=== PATIENT | male | born 1945 | race Caucasian/White ===

== ENCOUNTER 2020-06-21 08:21 | Inpatient (IN) | payer MEDICARE, OTHER ==
[~2020-06-21] VITALS: Ht 182.9 cm; Wt 54.9 kg
[2020-06-21] VITALS (9 sets, daily range): BP systolic 142–187; BP diastolic 51–91
[~2020-06-21 08:21] MED LIST: ACETAMINOPHEN650 M2 ORAL; ADALAT10 MG ORAL; CARAFATE1 G1 ORAL; CATAPRES0.1 MG ORAL; COLACE100 MG ORAL; COZAAR50 MG ORAL; HYDRALAZINE HCL50 MG ORAL; MULTIVITAMINS1 EAC8 ORAL; NITROSTAT0.4 M1 SL; RISPERDAL0.5 MG ORAL; VITAMIN C500 M1 ORAL
--- NOTE | 2020-06-21 08:33 | Emergency Room Report ---
History of Present Illness General Chief Complaint: Gastrointestinal Bleed Source: Medical Record, EMS Present Illness HPI Disclaimer: Please note that this report is being documented using DRAGON technology. This can lead to erroneous entry secondary to incorrect interpretation by the dictating instrument. HPI: 75-year-old male history of hypertension, hyperlipidemia, G-tube dependent feeds, on apixaban for DVT prophylaxis presenting with rectal bleeding. Blood noted in stool by nursing staff yesterday. Tested occult blood positive today. No syncope reported. Patient denies discomfort, diarrhea, vomiting. He denies pain of any kind at this time and denies lightheadedness, chest pain, palpitations, shortness of breath. Recently tested negative for COVID-19. States he has had a GI bleed in the past but cannot remember what the source was. 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 COVID-19 Screening: Negative COVID-19 COVID-19 Testing Source: [facility] acute-rehab Nursing Documentation-PMH Past Medical History: No History, Except For Hx Hypertension: Yes Hx Gastrointestinal Problems: Yes - left hip replacement, GERD Hx Neurological Problems: Yes - Dementia, Schizophrenia, FTT, depression Review of Systems All Other Systems: negative except mentioned in HPI Physical Exam Vital Signs Date Time Temp Pulse Resp B/P (MAP) Pulse Ox O2 Delivery O2 Flow Rate FiO2 06/21/20 08:22 97.9 63 16 161/91 (114) 97 Room Air General: Awake and alert, no acute distress HEENT: NC/AT. EOMI. Cardiovascular: RRR. S1 and S2 normal. No murmur appreciated Resp: Normal work of breathing. No cough, wheezing or crackles appreciated Abdomen: Abdomen is soft, nondistended. Nontender. G-tube in place. No surrounding leaking or signs of infection. Rectal: Gross blood mixed with stool Skin: Intact. No abrasions, laceration or rash over the exposed skin MSK: Frail, decreased muscle bulk. Neuro: Awake and alert. Mentating appropriately. Medical Decision Making Diagnostic Impression: Primary Impression: Gastrointestinal hemorrhage ER Course 75-year-old male presents for rectal bleeding. He is on apixaban for DVT prophylaxis. Arrives with stable vital signs in no acute distress and denies abdominal pain. Patient started IV fluids, Protonix, send type and screen, broad labs and will require admission for GI bleed work-up. Labs unremarkable. No indication for emergent transfusion. Admitted to his PMD, Dr. Pena. Laboratory Tests Test 06/21/20 08:35 White Blood Count 5.4 K/UL (4.8-10.8) Red Blood Count 4.03 M/UL (4.70-6.10) L Hemoglobin 12.5 G/DL (14.2-18.0) L Hematocrit 36.0 % (42.0-52.0) L Mean Corpuscular Volume 89 FL (80-99) Mean Corpuscular Hemoglobin 30.9 PG (27.0-31.0) Mean Corpuscular Hemoglobin Concent 34.6 G/DL (32.0-36.0) Red Cell Distribution Width 14.3 % (11.6-14.8) Platelet Count 172 K/UL (150-450) Mean Platelet Volume 8.3 FL (6.5-10.1) Neutrophils (%) (Auto) 64.0 % (45.0-75.0) Lymphocytes (%) (Auto) 26.9 % (20.0-45.0) Monocytes (%) (Auto) 8.2 % (1.0-10.0) Eosinophils (%) (Auto) 0.3 % (0.0-3.0) Basophils (%) (Auto) 0.6 % (0.0-2.0) Prothrombin Time 11.5 SEC (9.30-11.50) Prothrombin Time INR 1.0 (0.9-1.1) Activated Partial Thromboplast Time 48 SEC (23-33) H Sodium Level 141 MMOL/L (136-145) Potassium Level 3.9 MMOL/L (3.5-5.1) Chloride Level 105 MMOL/L (98-107) Carbon Dioxide Level 34 MMOL/L (21-32) H Anion Gap 2 mmol/L (5-15) L Blood Urea Nitrogen 21 mg/dL (7-18) H Creatinine 0.7 MG/DL (0.55-1.30) Estimated Glomerular Filtration Rate > 60 mL/min (>60) Glucose Level 85 MG/DL (74-106) Calcium Level 8.8 MG/DL (8.5-10.1) Total Bilirubin 0.4 MG/DL (0.2-1.0) Aspartate Amino Transferase (AST) 27 U/L (15-37) Alanine Aminotransferase (ALT) 37 U/L (12-78) Alkaline Phosphatase 82 U/L (46-116) Troponin I 0.026 ng/mL (0.000-0.056) Total Protein 5.9 G/DL (6.4-8.2) L Albumin 2.9 G/DL (3.4-5.0) L Globulin 3.0 g/dL Albumin/Globulin Ratio 1.0 (1.0-2.7) Lipase 152 U/L (73-393) EKG Diagnostic Results Troponin ordered: Yes When was troponin ordered?: Jun 21, 2020 EKG Time: 08:31 Rate: bradycardiac Rhythm: NSR ST Segments: no acute changes Other Impression Sinus bradycardia, left axis, wide QRS 130 ms. QTc 457 ms. First-degree AV block. No ST segment elevation identified Rhythm Strip Diag. Results Rhythm Strip Time: 08:31 EP Interpretation: yes Rate: 50s Rhythm: NSR, no PVC's, no ectopy Chest X-Ray Diagnostic Results Chest X-Ray Diagnostic Results : Chest X-Ray Ordered: Yes # of Views/Limited/Complete: 1 View Indication: Other - Cough EP Interpretation: Yes Interpretation: no consolidation, no effusion, no pneumothorax, no acute cardiopulmonary disease Impression: No acute disease Electronically Signed by: Electronically signed by Dr. Leroy Acosta MD Last Vital Signs Date Time Temp Pulse Resp B/P (MAP) Pulse Ox O2 Delivery O2 Flow Rate FiO2 06/21/20 08:22 97.9 63 16 161/91 (114) 97 Room Air Disposition: ADMITTED INPATIENT Condition: Stable Leroy Acosta MD Jun 21, 2020 08:33
[2020-06-21] MEDS ORDERED: ACIDOPHILUS1 EAC6 GT (08:35)
[2020-06-21] MEDS ORDERED: DOXAZOSIN MESYLA1 MG GT (08:35)
[2020-06-21] MEDS ORDERED: Pantoprazole Inj IVP ONE (08:45)
[2020-06-21 09:04] LABS: BASOPHILS % (AUTO) 0.6 % (0.0-2.0); EOSINOPHILS % (AUTO) 0.3 % (0.0-3.0); HEMOGLOBIN 12.5 G/DL (14.2-18.0); LYMPHOCYTES % (AUTO) 26.9 % (20.0-45.0); MEAN CORPUSCULAR VOLUME 89 FL (80-99); MONOCYTES % (AUTO) 8.2 % (1.0-10.0); PLATELET COUNT 172 K/UL (150-450); RED BLOOD COUNT 4.03 M/UL (4.70-6.10); RED CELL DISTRIBUTION WIDTH 14.3 % (11.6-14.8); WHITE BLOOD COUNT 5.4 K/UL (4.8-10.8)
--- NOTE | 2020-06-21 09:13 | Diagnostic Imaging Report ---
EXAM: XR Chest, 1 View CLINICAL HISTORY: COUGH TECHNIQUE: Frontal view of the chest. COMPARISON: Chest radiograph January 30, 2020 FINDINGS/IMPRESSION: Mild hyperinflation. There is no focal consolidation, pleural effusion, or pneumothorax. The heart size is within normal limits. Calcified aorta.
[2020-06-21 09:17] LABS: ANION GAP 2 mmol/L (5-15); BLOOD UREA NITROGEN 21 mg/dL (7-18); CALCIUM 8.8 MG/DL (8.5-10.1); CARBON DIOXIDE 34 MMOL/L (21-32); CHLORIDE 105 MMOL/L (98-107); CREATININE 0.7 MG/DL (0.55-1.30); POTASSIUM 3.9 MMOL/L (3.5-5.1); SODIUM 141 MMOL/L (136-145)
[2020-06-21 09:22] LABS: ALANINE AMINOTRANSFERASE 37 U/L (12-78); ALBUMIN 2.9 G/DL (3.4-5.0); ALKALINE PHOSPHATASE 82 U/L (46-116); ASPARTATE AMINO TRANSFERASE 27 U/L (15-37); BILIRUBIN,TOTAL 0.4 MG/DL (0.2-1.0)
--- NOTE | 2020-06-21 10:15 | History and Physical Report ---
DATE OF ADMISSION: 06/21/2020 TIME SEEN: 06/21/2020 at 9 a.m. CONSULTANTS: 1. Carrillo Negrete MD. 2. Eris Shine MD. 3. Dr. Sawyer. CHIEF COMPLAINT: Rectal bleed. BRIEF HISTORY: This is a 75-year-old male from [facility] presented with increased bright red bleed from rectum this morning. The patient is slightly lethargic and weak. The patient was sent to [facility], diagnosed with the above. Currently in the ER gurney, getting additional tests. REVIEW OF SYSTEMS: Unavailable. PAST MEDICAL HISTORY: Confusion, weakness, left hip injury. PAST SURGICAL HISTORY: G-tube, left hip surgery. MEDICATIONS: Protonix and IV fluids. We will obtain home med list. ALLERGIES: Denies. SOCIAL HISTORY: No smoking. No alcohol. No intravenous drug abuse. FAMILY HISTORY: Noncontributory. PHYSICAL EXAMINATION: GENERAL: Slightly confused in bed, oriented x1, in no acute distress. VITAL SIGNS: Temperature 97 degrees, pulse 59, respirations 16, blood pressure 160/83. CARDIOVASCULAR: No murmur. LUNGS: Poor exchange. ABDOMEN: Bowel sounds distant. EXTREMITIES: No cyanosis, clubbing, or edema. NEUROLOGIC: The patient moving all extremities, slightly weak. LABORATORY AND DIAGNOSTIC DATA: Labs at this time show hemoglobin and hematocrit 12.5/36, otherwise CBC is normal. CO2 34, BUN and creatinine 21 and 0.7. Total albumin is 2.9. INR is 1.0. PTT is 48. ASSESSMENT: 1. Rectal bleed. 2. Anemia. 3. Malnutrition. PLAN: 1. NPO. 2. IV fluids. 3. Transfuse p.r.n. 4. GI followup. 5. Psych and heme eval as well. 6. PT and dietary evaluation. 7. CBC and BMP in the morning. 8. We will continue to follow this patient. Max Pena D.O. DR: Venus JOB#: [id number] CC:
--- NOTE | 2020-06-21 12:15 | General Progress Note ---
Subjective Allergies: Coded Allergies: No Known Allergies (Verified , 01/30/08) Objective Last 24 Hour Vital Signs Date Time Temp Pulse Resp B/P (MAP) Pulse Ox O2 Delivery O2 Flow Rate FiO2 06/21/20 08:32 97.9 59 16 168/83 99 Room Air 06/21/20 08:32 63 16 Room Air 06/21/20 08:22 97.9 63 16 161/91 (114) 97 Room Air Laboratory Tests 06/21/20 08:35: White Blood Count 5.4, Red Blood Count 4.03L, Hemoglobin 12.5L, Hematocrit 36.0L , Mean Corpuscular Volume 89, Mean Corpuscular Hemoglobin 30.9, Mean Corpuscular Hemoglobin Concent 34.6, Red Cell Distribution Width 14.3, Platelet Count 172, Mean Platelet Volume 8.3, Neutrophils (%) (Auto) 64.0, Lymphocytes (%) (Auto) 26.9, Monocytes (%) (Auto) 8.2, Eosinophils (%) (Auto) 0.3, Basophils (%) (Auto) 0.6, Prothrombin Time 11.5, Prothromb Time International Ratio 1.0, Activated Partial Thromboplast Time 48H, Sodium Level 141, Potassium Level 3.9, Chloride Level 105, Carbon Dioxide Level 34H, Anion Gap 2L, Blood Urea Nitrogen 21H, Creatinine 0.7, Estimat Glomerular Filtration Rate > 60, Glucose Level 85, Calcium Level 8.8, Total Bilirubin 0.4, Aspartate Amino Transf (AST/SGOT) 27, Alanine Aminotransferase (ALT/SGPT) 37, Alkaline Phosphatase 82, Troponin I 0.026, Total Protein 5.9L, Albumin 2.9L, Globulin 3.0, Albumin/Globulin Ratio 1.0, Lipase 152 Height (Feet): 6 Weight (Pounds): 122 General Appearance: no apparent distress EENT: normal ENT inspection Neck: supple Cardiovascular: normal rate Respiratory/Chest: lungs clear Abdomen: normal bowel sounds, non tender, soft Extremities: non-tender Assessment/Plan Assessment/Plan: dysphagia with GT GIB plan EGD and colonoscopy for tomorrow see full dictation Carrillo Negrete MD Jun 21, 2020 12:15
[2020-06-21] MEDS ORDERED: Golytely 4L ORAL ONE (17:00)
[2020-06-21] MEDS: D5 1/2NS w/KCl 20mEq 1,000 ML IV SCH (17:22)
[2020-06-22] VITALS (10 sets, daily range): BP systolic 132–186; BP diastolic 69–90
[2020-06-22] MEDS: D5 1/2NS w/KCl 20mEq 1,000 ML IV SCH ×2 (05:43→17:24)
--- NOTE | 2020-06-22 06:55 | Consultation ---
History of Present Illness General Chief Complaint: Gastrointestinal Bleed Present Illness Allergies: Coded Allergies: No Known Allergies (Verified , 01/30/08) Medication History Scheduled Acetaminophen (Acetaminophen 8 Hour), 650 MG ORAL Q6H, (Reported) Ascorbic Acid* (Vitamin C*), 500 MG ORAL DAILY, (Reported) Clonidine Hcl* (Catapres*), 0.1 MG ORAL EVERY 6 HOURS, (Reported) Docusate Sodium* (Colace*), 100 MG ORAL DAILY, (Reported) Doxazosin Mesylate* (Doxazosin Mesylate*), 2 MG GT DAILY, (Reported) Hydralazine Hcl* (Hydralazine Hcl*), 50 MG ORAL TWICE A DAY, (Reported) Lactobacillus Acidophilus (Acidophilus), 1 EACH GT DAILY, (Reported) Losartan Potassium* (Cozaar*), 100 MG ORAL DAILY, (Reported) Multivitamin With Minerals (Multivitamins With Minerals*), 1 TAB ORAL DAILY, (Reported) Nifedipine (Nifedipine*), 60 MG ORAL DAILY, (Reported) Risperidone* (Risperdal*), 0.5 MG ORAL BEDTIME, (Reported) Sucralfate* (Carafate*), 1 GM ORAL THREE TIMES A DAY, (Reported) Scheduled PRN Nitroglycerin (Nitrostat), 0.4 MG SL Q5M X3 DOSES PRN for CHEST PAIN, (Reported) Patient History Healthcare decision maker Resuscitation status Advanced Directive on File Physical Exam Last 24 Hour Vital Signs Date Time Temp Pulse Resp B/P (MAP) Pulse Ox O2 Delivery O2 Flow Rate FiO2 06/22/20 04:02 Room Air 06/22/20 01:20 98.5 65 16 125/70 100 Room Air 06/22/20 00:15 98.8 69 16 132/69 99 Room Air 06/21/20 23:27 187/63 06/21/20 23:00 98.1 56 16 187/63 100 Room Air 06/21/20 22:58 98.1 58 16 164/85 99 Room Air 06/21/20 20:00 98.1 52 14 165/91 100 Room Air 06/21/20 18:20 98.3 67 20 162/56 99 Room Air 06/21/20 16:30 97.9 58 16 160/51 100 Room Air 06/21/20 14:32 98.4 62 16 142/89 99 Room Air 06/21/20 12:32 97.9 58 20 154/90 96 Room Air 06/21/20 10:32 98.3 54 18 153/77 100 Room Air 06/21/20 08:32 97.9 59 16 168/83 99 Room Air 06/21/20 08:32 63 16 Room Air 06/21/20 08:22 97.9 63 16 161/91 (114) 97 Room Air Intake and Output 06/21/20 06/22/20 19:00 07:00 Intake Total 575 ml Balance 575 ml Intake IV Total 575 ml # Bowel Movements 1 Laboratory Tests Test 06/21/20 08:35 White Blood Count 5.4 K/UL (4.8-10.8) Red Blood Count 4.03 M/UL (4.70-6.10) L Hemoglobin 12.5 G/DL (14.2-18.0) L Hematocrit 36.0 % (42.0-52.0) L Mean Corpuscular Volume 89 FL (80-99) Mean Corpuscular Hemoglobin 30.9 PG (27.0-31.0) Mean Corpuscular Hemoglobin Concent 34.6 G/DL (32.0-36.0) Red Cell Distribution Width 14.3 % (11.6-14.8) Platelet Count 172 K/UL (150-450) Mean Platelet Volume 8.3 FL (6.5-10.1) Neutrophils (%) (Auto) 64.0 % (45.0-75.0) Lymphocytes (%) (Auto) 26.9 % (20.0-45.0) Monocytes (%) (Auto) 8.2 % (1.0-10.0) Eosinophils (%) (Auto) 0.3 % (0.0-3.0) Basophils (%) (Auto) 0.6 % (0.0-2.0) Prothrombin Time 11.5 SEC (9.30-11.50) Prothromb Time International Ratio 1.0 (0.9-1.1) Activated Partial Thromboplast Time 48 SEC (23-33) H Sodium Level 141 MMOL/L (136-145) Potassium Level 3.9 MMOL/L (3.5-5.1) Chloride Level 105 MMOL/L (98-107) Carbon Dioxide Level 34 MMOL/L (21-32) H Anion Gap 2 mmol/L (5-15) L Blood Urea Nitrogen 21 mg/dL (7-18) H Creatinine 0.7 MG/DL (0.55-1.30) Estimat Glomerular Filtration Rate > 60 mL/min (>60) Glucose Level 85 MG/DL (74-106) Calcium Level 8.8 MG/DL (8.5-10.1) Total Bilirubin 0.4 MG/DL (0.2-1.0) Aspartate Amino Transf (AST/SGOT) 27 U/L (15-37) Alanine Aminotransferase (ALT/SGPT) 37 U/L (12-78) Alkaline Phosphatase 82 U/L (46-116) Troponin I 0.026 ng/mL (0.000-0.056) Total Protein 5.9 G/DL (6.4-8.2) L Albumin 2.9 G/DL (3.4-5.0) L Globulin 3.0 g/dL Albumin/Globulin Ratio 1.0 (1.0-2.7) Lipase 152 U/L (73-393) Microbiology Date/Time Source Procedure Growth Status 06/21/20 18:05 Rectum Received 06/21/20 15:56 Nasopharynx SARS-CoV-2 RdRp Gene Assay - Final Complete Height (Feet): 6 Weight (Pounds): 122 Medications Current Medications Medications (Trade) Dose Ordered Sig/Madelyn Route PRN Reason Start Time Stop Time Status Last Admin Dose Admin Dextrose/ Electrolytes 1,000 ml @ 75 mls/hr [id number] IV 06/21/20 16:00 07/21/20 15:59 06/22/20 05:43 Assessment/Plan Assessment/Plan: Hematology Consultation REKishan DAN: Max Pena RFC: Anemia, gi bleed ID: 75-year-old male history of hypertension, hyperlipidemia, G-tube dependent feeds, on apixaban for DVT prophylaxis presenting with rectal bleeding. Blood noted in stool by nursing staff yesterday. Tested occult blood positive today. No syncope reported. Patient denies discomfort, diarrhea, vomiting. He denies pain of any kind at this time and denies lightheadedness, chest pain, palpitations, shortness of breath. Recently tested negative for COVID-19. States he has had a GI bleed in the past but cannot remember what the source was. Seen by Caden, to get egd/colo shortly. Is somewhat confused in am, difficult to obtain hx. 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 EOMI. Cardiovascular: RRR. S1 and S2 normal. No murmur appreciated Resp: Normal work of breathing. No cough, wheezing or crackles appreciated Abdomen: Abdomen is soft, nondistended. Nontender. G-tube in place. Rectal: Gross blood mixed with stool Skin: Intact. No abrasions, laceration or rash over the exposed skin MSK: Frail, decreased muscle bulk. Neuro: Awake and alert. Mentating appropriately. Labs: noted Imaging: reviewed Assessment and Recs # Anemia due to gastrointestinal hemorrhage -> to undergo egd/colo with Gi --> anemia panel as needed, if downtrending hgb -> hold off transfusion at this time -> hgb 12.5 --> trend hgb # Elevated ptt, unknown cause, may be due to apixaban, though not always consistent --> mixing study as needed --> difficult to reverse apixaban, side effects, now on hold # Azotemia on ivfs as needed -> bmp daily # Dvt ppx scds Appreciate consultation and dw Nicholas Al MD Jun 22, 2020 06:55
--- NOTE | 2020-06-22 07:41 | Anethesia Preoperative Eval ---
Anesthesia Pre-op PMH/ROS General Date of Evaluation: Jun 22, 2020 Time of Evaluation: 07:38 Anesthesiologist: neno ASA Score: ASA 4 Mallampati Score Class I : Soft palate, uvula, fauces, pillars visible Class II: Soft palate, uvula, fauces visible Class III: Soft palate, base of uvula visible Class IV: Only hard plate visible Mallampati Classification: Class II Surgeon: marbella Diagnosis: lgib Surgical Procedure: egd/colonoscopy Anesthesia History: none Social History: smoking - nonsmoker Family History: no anesthesia problems Allergies: Coded Allergies: No Known Allergies (Verified , 01/30/08) Medications: see eMAR Patient NPO?: Yes Past Medical History Cardiovascular: Reports: HTN Pulmonary: Reports: COPD Gastrointestinal/Genitourinary: Reports: GERD, other - renal disease Neurologic/Psychiatric: Reports: dementia - schizophrenia, depression/anxiety Hematology/Immune: Reports: anemia Musculoskeletal/Integumentary: Reports: OA, DDD, other - hip fracture Anesthesia Pre-op Phys. Exam Physician Exam Last Vital Signs Date Time Temp Pulse Resp B/P (MAP) Pulse Ox O2 Delivery O2 Flow Rate FiO2 06/22/20 04:02 Room Air 06/22/20 01:20 98.5 65 16 125/70 100 Constitutional: NAD Neurologic: CN 2-12 intact Cardiovascular: RRR Respiratory: CTA Gastrointestinal: S/NT/ND Airway Exam Mallampati Score: Class II MO: limited Neck: flexible TMD: 2fb ROM: limited Teeth: missing Anesthesia Pre-op A/P Labs Microbiology Date/Time Source Procedure Growth Status 06/21/20 18:05 Rectum Received 06/21/20 15:56 Nasopharynx SARS-CoV-2 RdRp Gene Assay - Final Complete Hematology Test 06/21/20 08:35 White Blood Count 5.4 K/UL (4.8-10.8) Red Blood Count 4.03 M/UL (4.70-6.10) L Hemoglobin 12.5 G/DL (14.2-18.0) L Hematocrit 36.0 % (42.0-52.0) L Mean Corpuscular Volume 89 FL (80-99) Mean Corpuscular Hemoglobin 30.9 PG (27.0-31.0) Mean Corpuscular Hemoglobin Concent 34.6 G/DL (32.0-36.0) Red Cell Distribution Width 14.3 % (11.6-14.8) Platelet Count 172 K/UL (150-450) Mean Platelet Volume 8.3 FL (6.5-10.1) Neutrophils (%) (Auto) 64.0 % (45.0-75.0) Lymphocytes (%) (Auto) 26.9 % (20.0-45.0) Monocytes (%) (Auto) 8.2 % (1.0-10.0) Eosinophils (%) (Auto) 0.3 % (0.0-3.0) Basophils (%) (Auto) 0.6 % (0.0-2.0) Coagulation Test 06/21/20 08:35 Prothrombin Time 11.5 SEC (9.30-11.50) Prothromb Time International Ratio 1.0 (0.9-1.1) Activated Partial Thromboplast Time 48 SEC (23-33) H Chemistry Test 06/21/20 08:35 Sodium Level 141 MMOL/L (136-145) Potassium Level 3.9 MMOL/L (3.5-5.1) Chloride Level 105 MMOL/L (98-107) Carbon Dioxide Level 34 MMOL/L (21-32) H Anion Gap 2 mmol/L (5-15) L Blood Urea Nitrogen 21 mg/dL (7-18) H Creatinine 0.7 MG/DL (0.55-1.30) Estimat Glomerular Filtration Rate > 60 mL/min (>60) Glucose Level 85 MG/DL (74-106) Calcium Level 8.8 MG/DL (8.5-10.1) Total Bilirubin 0.4 MG/DL (0.2-1.0) Aspartate Amino Transf (AST/SGOT) 27 U/L (15-37) Alanine Aminotransferase (ALT/SGPT) 37 U/L (12-78) Alkaline Phosphatase 82 U/L (46-116) Troponin I 0.026 ng/mL (0.000-0.056) Total Protein 5.9 G/DL (6.4-8.2) L Albumin 2.9 G/DL (3.4-5.0) L Globulin 3.0 g/dL Albumin/Globulin Ratio 1.0 (1.0-2.7) Lipase 152 U/L (73-393) Risk Assessment & Plan Assessment: [email or web address] Plan: mac Status Change Before Surgery: No Pre-Antibiotics Drug: Shirley Pradhan MD Jun 22, 2020 07:41
[2020-06-22] MEDS ORDERED: Midazolam 2mg/2ml Inj IVP PRN (07:45)
[2020-06-22] MEDS ORDERED: fentaNYL 100 mcg/2 mL IV PRN (07:45)
[2020-06-22] MEDS ORDERED: DiphenhydrAMINE 50mg/ml Inj IVP PRN (07:45)
[2020-06-22] MEDS ORDERED: Atropine Inj 1mg/10ml Syr IVP PRN (07:45)
[2020-06-22] MEDS ORDERED: Lidocaine 1% MPF 10mg/ml 5ml ONE (08:00)
--- NOTE | 2020-06-22 08:32 | Pre-Procedure Note/Attestation ---
Pre-Procedure Note/Attestation Complete Prior to Procedure Planned Procedure: not applicable Procedure Narrative: esophagogastroduodenoscopy and colonoscopy Indications for Procedure Pre-Operative Diagnosis: GIB Attestation I attest that I discussed the nature of the procedure; its benefits; risks and complications; and alternatives (and the risks and benefits of such alternatives), prior to the procedure, with the patient (or the patient's legal maintenance representative). I attest that, if there was a reasonable possibility of needing a blood transfusion, the patient (or the patient's legal maintenance representative) was given the [facility] standardized written summary, pursuant to the [place] Blood Safety Act ([place] Health and Safety Code # 1645, as amended). I attest that I re-evaluated the patient just prior to the surgery and that there has been no change in the patient's H&P, except as documented below: Carrillo Negrete MD Jun 22, 2020 08:32
[2020-06-22 08:34] LABS: BASOPHILS % (AUTO) 0.9 % (0.0-2.0); EOSINOPHILS % (AUTO) 0.2 % (0.0-3.0); HEMATOCRIT 33.7 % (42.0-52.0); LYMPHOCYTES % (AUTO) 29.5 % (20.0-45.0); MEAN CORPUSCULAR VOLUME 90 FL (80-99); MONOCYTES % (AUTO) 8.3 % (1.0-10.0); NEUTROPHILS % (AUTO) 61.2 % (45.0-75.0); PLATELET COUNT 149 K/UL (150-450); RED BLOOD COUNT 3.76 M/UL (4.70-6.10); RED CELL DISTRIBUTION WIDTH 13.3 % (11.6-14.8); WHITE BLOOD COUNT 3.9 K/UL (4.8-10.8)
[2020-06-22] MEDS ORDERED: NS 500ML IVPB ONE (08:35)
[2020-06-22 08:45] LABS: ANION GAP 3 mmol/L (5-15); BLOOD UREA NITROGEN 12 mg/dL (7-18); CALCIUM 8.5 MG/DL (8.5-10.1); CARBON DIOXIDE 33 MMOL/L (21-32); CHLORIDE 106 MMOL/L (98-107); CREATININE 0.6 MG/DL (0.55-1.30); POTASSIUM 3.5 MMOL/L (3.5-5.1); SODIUM 142 MMOL/L (136-145)
--- NOTE | 2020-06-22 09:02 | Endoscopy Procedure Note ---
Endoscopy Procedure Note General Indication for Procedure: gib Procedures Performed: flexible sigmoidoscopy, EGD Operative Findings/Diagnosis: gastritis Specimen: yes Pt Tolerated Procedure Well: Yes Estimated Blood Loss: none Anesthesia Anesthesiologist: dario Anesthesia: MAC Inserted Devices Implant(s) used?: No GI Core Measures 50 yrs or older w/o bx or poly: Not Applicable 10yrs. F/U recommended: Not Applicable Carrillo Negrete MD Jun 22, 2020 09:02
--- NOTE | 2020-06-22 09:15 | Immediate Post-Op Evaluation ---
Immediate Post-Op Evalulation Immediate Post-Op Evalulation Procedure: egd/colonoscopy w/bx Date of Evaluation: Jun 22, 2020 Time of Evaluation: 09:13 IV Fluids: 200ml 0.9ns Blood Products: none Estimated Blood Loss: negligible Blood Pressure Systolic: 174 Blood Pressure Diastolic: 91 Pulse Rate: 61 Respiratory Rate: 18 O2 Sat by Pulse Oximetry: 100 Temperature (Fahrenheit): 98.5 Pain Score (1-10): 0 Nausea: No Vomiting: No Complications none Patient Status: awake, reacts, patent Hydration Status: adequate Drug: Shirley Pradhan MD Jun 22, 2020 09:15
--- NOTE | 2020-06-22 09:16 | 48 Hour Post Anesthesia Eval ---
Post Anesthesia Evaluation Procedure: egd/colonoscopy w/bx Date of Evaluation: Jun 22, 2020 Time of Evaluation: 09:16 Blood Pressure Systolic: 159 0: 83 Pulse Rate: 62 Respiratory Rate: 18 Temperature (Fahrenheit): 98.5 O2 Sat by Pulse Oximetry: 100 Airway: patent Nausea: No Vomiting: No Pain Intensity: 0 Hydration Status: adequate Cardiopulmonary Status: stable Mental Status/LOC: patient returned to baseline Post-Anesthesia Complications: none Follow-up care needed: N/A Shirley Deluca MD Jun 22, 2020 09:16
--- NOTE | 2020-06-22 09:18 | General Progress Note ---
Subjective Constitutional: Reports: weakness Allergies: Coded Allergies: No Known Allergies (Verified , 01/30/08) All Systems: reviewed and negative except above Subjective calm in bed Objective Last 24 Hour Vital Signs Date Time Temp Pulse Resp B/P (MAP) Pulse Ox O2 Delivery O2 Flow Rate FiO2 06/22/20 09:15 61 18 100 06/22/20 08:00 96.9 62 18 159/83 (108) 97 06/22/20 04:02 Room Air 06/22/20 01:20 98.5 65 16 125/70 100 Room Air 06/22/20 00:15 98.8 69 16 132/69 99 Room Air 06/21/20 23:27 187/63 06/21/20 23:00 98.1 56 16 187/63 100 Room Air 06/21/20 22:58 98.1 58 16 164/85 99 Room Air 06/21/20 20:00 98.1 52 14 165/91 100 Room Air 06/21/20 18:20 98.3 67 20 162/56 99 Room Air 06/21/20 16:30 97.9 58 16 160/51 100 Room Air 06/21/20 14:32 98.4 62 16 142/89 99 Room Air 06/21/20 12:32 97.9 58 20 154/90 96 Room Air 06/21/20 10:32 98.3 54 18 153/77 100 Room Air Intake and Output 06/21/20 06/22/20 19:00 07:00 Intake Total 575 ml Balance 575 ml Intake IV Total 575 ml # Voids 2 # Bowel Movements 1 2 Laboratory Tests 06/22/20 08:04: White Blood Count 3.9L, Red Blood Count 3.76L, Hemoglobin 12.0L, Hematocrit 33.7L, Mean Corpuscular Volume 90, Mean Corpuscular Hemoglobin 31.8H, Mean Corpuscular Hemoglobin Concent 35.5, Red Cell Distribution Width 13.3, Platelet Count 149L, Mean Platelet Volume 9.0, Neutrophils (%) (Auto) 61.2, Lymphocytes (%) (Auto) 29.5, Monocytes (%) (Auto) 8.3, Eosinophils (%) (Auto) 0.2, Basophils (%) (Auto) 0.9, Sodium Level 142, Potassium Level 3.5, Chloride Level 106, Carbon Dioxide Level 33H, Anion Gap 3L, Blood Urea Nitrogen 12, Creatinine 0.6, Estimat Glomerular Filtration Rate > 60, Glucose Level 101, Calcium Level 8.5 Height (Feet): 6 Height (Inches): 0.00 Weight (Pounds): 122 General Appearance: lethargic EENT: normal ENT inspection Neck: normal alignment Cardiovascular: normal peripheral pulses, normal rate, regular rhythm Respiratory/Chest: chest wall non-tender, lungs clear, normal breath sounds Abdomen: normal bowel sounds, non tender, soft Extremities: normal inspection Edema: no edema noted Arm (L), no edema noted Arm (R), no edema noted Leg (L), no edema noted Leg (R), no edema noted Pedal (L), no edema noted Pedal (R), no edema noted Generalized Neurologic: motor weakness Skin: normal pigmentation, warm/dry Assessment/Plan Problem List: (1) Anemia ICD Codes: D64.9 - Anemia, unspecified SNOMED: 116981152 (2) Malnutrition ICD Codes: E46 - Unspecified protein-calorie malnutrition SNOMED: 29898013 (3) Pancytopenia ICD Codes: D61.818 - Other pancytopenia SNOMED: 201534526 (4) Gastrointestinal hemorrhage ICD Codes: K92.2 - Gastrointestinal hemorrhage, unspecified SNOMED: 85108947 Status: unchanged Assessment/Plan: pt diet gi/f/u cbc bmp am Max Pena DO Jun 22, 2020 09:18
--- NOTE | 2020-06-22 09:30 | Procedure Note ---
DATE OF PROCEDURE: 06/22/2020 SURGEON: Carrillo Negrete MD. PROCEDURE: Upper endoscopy with biopsy, flexible sigmoidoscopy ANESTHESIOLOGIST: James Perez INSTRUMENT: Olympus adult flexible upper endoscope. INDICATION: GI bleed. REASON FOR PROCEDURE: The procedure, risks, benefits, and possible consequences, including hemorrhage, aspiration, perforation and infection, and alternative treatments, were explained to the patient/legal guardian by Dr. Carrillo Negrete and the patient/legal guardian understood and accepted these risks. DESCRIPTION OF PROCEDURE: After informed consent was obtained and the patient was adequately sedated, the Olympus upper endoscope was advanced from the mouth into the second portion of the duodenum and retroflexion maneuver was performed in the stomach. The patient has evidence of diffuse gastritis. Random biopsies from the antrum was obtained to rule out H. pylori infection. The patient has a G-tube in place. The G-tube was pushed in. There was no evidence of any ulceration under the G-tube to explain the bleeding. At this time, the upper endoscope was retrieved and patient was turned over for colonoscopy. First, rectal exam was performed, which was positive for internal hemorrhoids. Then scope was advanced from rectum into the sigmoid colon. Given poor prep, we could not advance the scope beyond this point. The patient had a very poor prep and limited study. SUMMARY OF FINDINGS: 1. Gastritis, status post biopsy. 2. G-tube in place without any obvious bleeding around the G-tube site. 3. Incomplete examination of the lower GI because of poor prep. 4. Internal hemorrhoids. RECOMMENDATIONS: 1. Given the stable H and H, would not attempt to do a colonoscopy at this time. 2. We will resume G-tube feedings. 3. Monitor H and H, transfuse as needed. 4. If the patient shows signs and symptoms of lower GI bleeding, reschedule colonoscopy for another day. I want to thank, Dr. Max Pena, for this kind referral. Carrillo Negrete M.D. DR: Vandana JOB#: [id number] CC: Max Pena D.O.
--- NOTE | 2020-06-22 12:23 | Cardiac Electrophysiology PN ---
Subjective Subjective [id number] Objective Last 24 Hour Vital Signs Date Time Temp Pulse Resp B/P (MAP) Pulse Ox O2 Delivery O2 Flow Rate FiO2 06/22/20 12:00 97.5 20 18 161/81 (107) 98 06/22/20 09:30 97.8 46 14 186/83 98 Room Air 06/22/20 09:20 43 13 169/88 100 Nasal Cannula 3 06/22/20 09:16 62 18 100 06/22/20 09:15 61 18 100 06/22/20 09:10 46 12 182/79 100 Nasal Cannula 3 06/22/20 09:05 48 12 174/83 100 Nasal Cannula 3 06/22/20 09:01 98.2 54 14 174/90 100 Nasal Cannula 3 06/22/20 09:00 Room Air 06/22/20 08:00 96.9 62 18 159/83 (108) 97 06/22/20 08:00 63 06/22/20 04:02 Room Air 06/22/20 01:20 98.5 65 16 125/70 100 Room Air 06/22/20 00:15 98.8 69 16 132/69 99 Room Air 06/21/20 23:27 187/63 06/21/20 23:00 98.1 56 16 187/63 100 Room Air 06/21/20 22:58 98.1 58 16 164/85 99 Room Air 06/21/20 20:00 98.1 52 14 165/91 100 Room Air 06/21/20 18:20 98.3 67 20 162/56 99 Room Air 06/21/20 16:30 97.9 58 16 160/51 100 Room Air 06/21/20 14:32 98.4 62 16 142/89 99 Room Air 06/21/20 12:32 97.9 58 20 154/90 96 Room Air Intake and Output 06/21/20 06/22/20 19:00 07:00 Intake Total 575 ml Balance 575 ml Intake IV Total 575 ml # Voids 2 # Bowel Movements 1 2 Laboratory Tests Test 06/22/20 08:04 White Blood Count 3.9 K/UL (4.8-10.8) L Red Blood Count 3.76 M/UL (4.70-6.10) L Hemoglobin 12.0 G/DL (14.2-18.0) L Hematocrit 33.7 % (42.0-52.0) L Mean Corpuscular Volume 90 FL (80-99) Mean Corpuscular Hemoglobin 31.8 PG (27.0-31.0) H Mean Corpuscular Hemoglobin Concent 35.5 G/DL (32.0-36.0) Red Cell Distribution Width 13.3 % (11.6-14.8) Platelet Count 149 K/UL (150-450) L Mean Platelet Volume 9.0 FL (6.5-10.1) Neutrophils (%) (Auto) 61.2 % (45.0-75.0) Lymphocytes (%) (Auto) 29.5 % (20.0-45.0) Monocytes (%) (Auto) 8.3 % (1.0-10.0) Eosinophils (%) (Auto) 0.2 % (0.0-3.0) Basophils (%) (Auto) 0.9 % (0.0-2.0) Sodium Level 142 MMOL/L (136-145) Potassium Level 3.5 MMOL/L (3.5-5.1) Chloride Level 106 MMOL/L (98-107) Carbon Dioxide Level 33 MMOL/L (21-32) H Anion Gap 3 mmol/L (5-15) L Blood Urea Nitrogen 12 mg/dL (7-18) Creatinine 0.6 MG/DL (0.55-1.30) Estimat Glomerular Filtration Rate > 60 mL/min (>60) Glucose Level 101 MG/DL (74-106) Calcium Level 8.5 MG/DL (8.5-10.1) Microbiology Date/Time Source Procedure Growth Status 06/21/20 18:05 Rectum Received 06/21/20 15:56 Nasopharynx SARS-CoV-2 RdRp Gene Assay - Final Complete Kobe Aguiar MD Jun 22, 2020 12:23
--- NOTE | 2020-06-22 13:30 | Consultation ---
DATE OF CONSULTATION: 06/22/2020 CARDIOLOGY CONSULTATION CONSULTING PHYSICIAN: Kobe Aguiar MD. REFERRING PHYSICIAN: Max Pena DO. REASON FOR CONSULTATION: Bradycardia and trifascicular block. HISTORY OF PRESENT ILLNESS: The patient is a 75-year-old gentleman with history of hypertension, hyperlipidemia, history of dysphagia, status post G-tube placement as well, who was on Eliquis for DVT, presented with rectal bleeding by nursing staff. Occult blood was positive. The patient did not have syncope. The patient was negative for COVID-19. EKG showed trifascicular block with sinus rhythm, first-degree AV block, right bundle-branch block and left anterior fascicular block. The patient's blood pressure was also running high, as high as 170s. The patient also underwent EGD and sigmoidoscopy by Dr. Negrete that showed gastritis, but incomplete examination of lower GI because of poor prep and an internal hemorrhoid. REVIEW OF SYSTEMS: Negative other than what was mentioned in the history of present illness. PAST MEDICAL HISTORY: As mentioned above. FAMILY HISTORY: Noncontributory. SOCIAL HISTORY: alf resident. Does not smoke or drink alcohol. PHYSICAL EXAMINATION: VITAL SIGNS: Blood pressure 161/81, was as high as 186/83, pulse was as angie as 20 was reported at 12 o'clock with mostly in the 40s. Respirations 18. He is afebrile. HEAD AND NECK: Showed no JVD. LUNGS: Clear. CARDIOVASCULAR: Shows bradycardic. S1 and S2 with no gallop or murmur. ABDOMEN: Soft. EXTREMITIES: No pitting edema. He has a G-tube in place. LABORATORY AND DIAGNOSTIC DATA: Labs show white count of 3.9, hematocrit of 12, hematocrit of 33.7, and platelet count was 149. Sodium 142, potassium 3.5, BUN of 12, creatinine 0.6, and troponin was negative. ASSESSMENT AND PLAN: 1. Trifascicular block with first-degree AV block, right bundle-branch block and left anterior fascicular block as well as bradycardia with heart rate down to 20s per report. We will watch him on telemetry. Keep him off of any sinus or AV conrad blocking agents. 2. Hypertension. Start the patient on hydralazine 25 mg three times daily. Avoid clonidine or beta-jose antonio or calcium channel blockers. 3. Dysphagia, status post PEG placement. 4. GI bleed, status post EGD that showed just gastritis. Colonoscopy performed due to full perforation followed by Dr. Negrete. 5. Anemia due to GI bleed. Follow up with Dr. Sawyer and Dr. Negrete. Thank you very much for allowing me to participate in the care of this patient. Please do not hesitate to contact me for any questions regarding my evaluation. An echocardiogram is also pending. Kobe Aguiar M.D. DR: IMITAZ JOB#: [id number] CC:
[2020-06-22] MEDS: HydrALAZINE 25mg tab ORAL SCH ×2 (14:47→21:24)
[2020-06-22] MEDS ORDERED: LORazepam 1mg tab ORAL PRN (23:00)
[2020-06-23] VITALS: BP 164/83
[2020-06-23 04:00] VITALS: BP 143/75
[2020-06-23] MEDS: HydrALAZINE 25mg tab ORAL SCH ×3 (05:23→21:42)
--- NOTE | 2020-06-23 06:38 | Hematology/Onc Progress Note ---
Assessment/Plan Assessment/Plan Assessment and Recs # Pancytopenia initially with Anemia due to gastrointestinal hemorrhage -> to undergo egd/colo with Gi --> anemia panel as needed, if downtrending hgb -> hold off transfusion at this time --> hgb 12.5-->12 --> plt 139 --> wbc 3.9 --> colo/egd shows internal hemorrhoids and gastritis # Elevated ptt, unknown cause, may be due to apixaban, though not always consistent --> mixing study as needed --> difficult to reverse apixaban, side effects, now on hold # Azotemia on ivfs as needed -> bmp daily # Dysphagia s/p peg with Gastritis, status post biopsy. --> G-tube in place without any obvious bleeding around the G-tube site # Dvt ppx scds Appreciate consultation and dw RN Subjective Constitutional: Denies: no symptoms, chills, fever, malaise, weakness, other HEENT: Denies: no symptoms, eye pain, blurred vision, tearing, double vision, ear pain, ear discharge, nose pain, nose congestion, throat pain, throat swelling, mouth pain, mouth swelling, other Cardiovascular: Denies: no symptoms, chest pain, edema, irregular heart rate, lightheadedness, palpitations, syncope, other Respiratory: Denies: no symptoms, cough, shortness of breath, SOB with excertion, SOB at rest, sputum, wheezing, other Gastrointestinal/Abdominal: Denies: no symptoms, abdomen distended, abdominal pain, black stools, tarry stools, blood in stool, constipated, diarrhea, difficulty swallowing, nausea, poor appetite, poor fluid intake, rectal bleeding, vomiting, other Genitourinary: Denies: no symptoms, burning, discharge, frequency, flank pain, hematuria, incontinence, pain, urgency, other Neurologic/Psychiatric: Denies: no symptoms, anxiety, depressed, emotional problems, headache, numbness, paresthesia, pre-existing deficit, seizure, tingling, tremors, weakness, other Endocrine: Denies: no symptoms, excessive sweating, flushing, intolerance to cold, intolerance to heat, increased hunger, increased thirst, increased urine, unexplained weight gain, unexplained weight loss, other Allergies: Coded Allergies: No Known Allergies (Verified , 7/23/08) Subjective 06/23 labs are noted, no bleeding, meds noted, s/p endoscopy Objective Objective Current Medications Medications (Trade) Dose Ordered Sig/Madelny Route PRN Reason Start Time Stop Time Status Last Admin Dose Admin Dextrose/ Electrolytes 1,000 ml @ 75 mls/hr [id number] IV 06/21/20 16:00 07/21/20 15:59 06/22/20 17:24 Hydralazine HCl (Apresoline) 10 mg Q4H PRN IV htn 06/22/20 12:29 09/20/20 12:28 06/22/20 17:24 Hydralazine HCl (Apresoline) 25 mg EVERY 8 HOURS ORAL 06/22/20 14:00 09/20/20 13:59 06/23/20 05:23 Lorazepam (Ativan) 1 mg Q6H PRN ORAL For Anxiety 06/22/20 23:00 06/29/20 22:59 Risperidone (RisperDAL) 0.5 mg QHS ORAL 06/23/20 21:00 08/07/20 20:59 Last 24 Hour Vital Signs Date Time Temp Pulse Resp B/P (MAP) Pulse Ox O2 Delivery O2 Flow Rate FiO2 06/23/20 05:23 159/76 06/23/20 04:00 62 06/23/20 04:00 97.6 68 24 143/75 (97) 98 06/23/20 00:00 97.4 60 24 164/83 (110) 99 06/23/20 00:00 68 06/22/20 21:24 141/84 06/22/20 21:00 Room Air 06/22/20 20:00 97.3 79 20 141/84 (103) 98 06/22/20 20:00 68 06/22/20 17:24 176/82 06/22/20 16:00 63 06/22/20 16:00 97.9 53 18 176/82 (113) 98 06/22/20 14:47 161/81 06/22/20 12:00 97.5 20 18 161/81 (107) 98 06/22/20 12:00 63 06/22/20 09:30 97.8 46 14 186/83 98 Room Air 06/22/20 09:20 43 13 169/88 100 Nasal Cannula 3 06/22/20 09:16 62 18 100 06/22/20 09:15 61 18 100 06/22/20 09:10 46 12 182/79 100 Nasal Cannula 3 06/22/20 09:05 48 12 174/83 100 Nasal Cannula 3 06/22/20 09:01 98.2 54 14 174/90 100 Nasal Cannula 3 06/22/20 09:00 Room Air 06/22/20 08:00 96.9 62 18 159/83 (108) 97 06/22/20 08:00 63 06/22/20 04:02 Room Air 06/22/20 01:20 98.5 65 16 125/70 100 Room Air 06/22/20 00:15 98.8 69 16 132/69 99 Room Air 06/21/20 23:27 187/63 06/21/20 23:00 98.1 56 16 187/63 100 Room Air 06/21/20 22:58 98.1 58 16 164/85 99 Room Air 06/21/20 20:00 98.1 52 14 165/91 100 Room Air 06/21/20 18:20 98.3 67 20 162/56 99 Room Air 06/21/20 16:30 97.9 58 16 160/51 100 Room Air 06/21/20 14:32 98.4 62 16 142/89 99 Room Air 06/21/20 12:32 97.9 58 20 154/90 96 Room Air 06/21/20 10:32 98.3 54 18 153/77 100 Room Air 06/21/20 08:32 97.9 59 16 168/83 99 Room Air 06/21/20 08:32 63 16 Room Air 06/21/20 08:22 97.9 63 16 161/91 (114) 97 Room Air Intake and Output 06/22/20 06/23/20 19:00 07:00 Intake Total 1004 ml 460 ml Output Total 400 ml 400 ml Balance 604 ml 60 ml Intake Free Water 400 ml IV Total 1004 ml Tube Feeding 60 ml Output Urine Total 400 ml 400 ml Estimated Blood Loss 0 ml # Bowel Movements 2 Labs Test 06/21/20 08:35 06/22/20 08:04 06/22/20 12:30 White Blood Count 5.4 K/UL (4.8-10.8) 3.9 K/UL (4.8-10.8) Red Blood Count 4.03 M/UL (4.70-6.10) 3.76 M/UL (4.70-6.10) Hemoglobin 12.5 G/DL (14.2-18.0) 12.0 G/DL (14.2-18.0) Hematocrit 36.0 % (42.0-52.0) 33.7 % (42.0-52.0) Mean Corpuscular Volume 89 FL (80-99) 90 FL (80-99) Mean Corpuscular Hemoglobin 30.9 PG (27.0-31.0) 31.8 PG (27.0-31.0) Mean Corpuscular Hemoglobin Concent 34.6 G/DL (32.0-36.0) 35.5 G/DL (32.0-36.0) Red Cell Distribution Width 14.3 % (11.6-14.8) 13.3 % (11.6-14.8) Platelet Count 172 K/UL (150-450) 149 K/UL (150-450) Mean Platelet Volume 8.3 FL (6.5-10.1) 9.0 FL (6.5-10.1) Neutrophils (%) (Auto) 64.0 % (45.0-75.0) 61.2 % (45.0-75.0) Lymphocytes (%) (Auto) 26.9 % (20.0-45.0) 29.5 % (20.0-45.0) Monocytes (%) (Auto) 8.2 % (1.0-10.0) 8.3 % (1.0-10.0) Eosinophils (%) (Auto) 0.3 % (0.0-3.0) 0.2 % (0.0-3.0) Basophils (%) (Auto) 0.6 % (0.0-2.0) 0.9 % (0.0-2.0) Prothrombin Time 11.5 SEC (9.30-11.50) Prothromb Time International Ratio 1.0 (0.9-1.1) Activated Partial Thromboplast Time 48 SEC (23-33) Sodium Level 141 MMOL/L (136-145) 142 MMOL/L (136-145) Potassium Level 3.9 MMOL/L (3.5-5.1) 3.5 MMOL/L (3.5-5.1) Chloride Level 105 MMOL/L (98-107) 106 MMOL/L (98-107) Carbon Dioxide Level 34 MMOL/L (21-32) 33 MMOL/L (21-32) Anion Gap 2 mmol/L (5-15) 3 mmol/L (5-15) Blood Urea Nitrogen 21 mg/dL (7-18) 12 mg/dL (7-18) Creatinine 0.7 MG/DL (0.55-1.30) 0.6 MG/DL (0.55-1.30) Estimat Glomerular Filtration Rate > 60 mL/min (>60) > 60 mL/min (>60) Glucose Level 85 MG/DL (74-106) 101 MG/DL (74-106) Calcium Level 8.8 MG/DL (8.5-10.1) 8.5 MG/DL (8.5-10.1) Total Bilirubin 0.4 MG/DL (0.2-1.0) Aspartate Amino Transf (AST/SGOT) 27 U/L (15-37) Alanine Aminotransferase (ALT/SGPT) 37 U/L (12-78) Alkaline Phosphatase 82 U/L (46-116) Troponin I 0.026 ng/mL (0.000-0.056) Total Protein 5.9 G/DL (6.4-8.2) Albumin 2.9 G/DL (3.4-5.0) Globulin 3.0 g/dL Albumin/Globulin Ratio 1.0 (1.0-2.7) Lipase 152 U/L (73-393) Height (Feet): 6 Height (Inches): 0.00 Weight (Pounds): 122 Objective Physical Exam General: Awake and alert, no acute distress HEENT: NC/AT. EOMI. Cardiovascular: RRR. S1 and S2 normal. No murmur appreciated Resp: Normal work of breathing. No cough, wheezing or crackles appreciated Abdomen: Abdomen is soft, nondistended. Nontender. G-tube in place. Rectal: Gross blood mixed with stool Skin: Intact. No abrasions, laceration or rash over the exposed skin MSK: Frail, decreased muscle bulk. Neuro: Awake and alert. Mentating appropriately. Nicholas Sawyer MD Jun 23, 2020 06:38
--- NOTE | 2020-06-23 07:13 | Psychiatry Consultation ---
Psychiatry Consultation Psychiatry Consultation Chief Complaint: Gastrointestinal Bleed History of Present Illness: 75-year-old male patient with GI bleeding pancytopenia and malnutrition still has some depression some altered mental status confusion and mood lability as well as attending is requesting daily psychiatry consultation he was seen and assessed at bedside still somewhat confused but also depressed and anxious Mental status examination: This is a 75-year-old male who is appearance disheveled his attitude irritable agitated affect labile intellect poor because he has no current events does not last for presents mood depressed anxious motor activity psychomotor agitation attention span is poor because he cannot do serial sevens is power backwards orientation x2 person place not time situation speech somewhat nonsensical thought process disorganized logical thought content some paranoia not hallucinations Insight is poor he does recognize having a mental disorder judgment is poor because he has difficulties making decisions for himself Allergies: Coded Allergies: No Known Allergies (Verified , 01/30/08) Medication History Scheduled Acetaminophen (Acetaminophen 8 Hour), 650 MG ORAL Q6H, (Reported) Ascorbic Acid* (Vitamin C*), 500 MG ORAL DAILY, (Reported) Clonidine Hcl* (Catapres*), 0.1 MG ORAL EVERY 6 HOURS, (Reported) Docusate Sodium* (Colace*), 100 MG ORAL DAILY, (Reported) Doxazosin Mesylate* (Doxazosin Mesylate*), 2 MG GT DAILY, (Reported) Hydralazine Hcl* (Hydralazine Hcl*), 50 MG ORAL TWICE A DAY, (Reported) Lactobacillus Acidophilus (Acidophilus), 1 EACH GT DAILY, (Reported) Losartan Potassium* (Cozaar*), 100 MG ORAL DAILY, (Reported) Multivitamin With Minerals (Multivitamins With Minerals*), 1 TAB ORAL DAILY, (Reported) Nifedipine (Nifedipine*), 60 MG ORAL DAILY, (Reported) Risperidone* (Risperdal*), 0.5 MG ORAL BEDTIME, (Reported) Sucralfate* (Carafate*), 1 GM ORAL THREE TIMES A DAY, (Reported) Scheduled PRN Nitroglycerin (Nitrostat), 0.4 MG SL Q5M X3 DOSES PRN for CHEST PAIN, (Reported) Objective Data Height (Feet): 6 Height (Inches): 0.00 Weight (Pounds): 122 Assessment/Plan Assessment/Plan: Treat this patient with Risperdal 0.5 mg p.o. 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
[2020-06-23 07:23] LABS: BASOPHILS % (AUTO) 0.7 % (0.0-2.0); EOSINOPHILS % (AUTO) 0.2 % (0.0-3.0); HEMATOCRIT 35.3 % (42.0-52.0); HEMOGLOBIN 12.2 G/DL (14.2-18.0); MEAN CORPUSCULAR VOLUME 91 FL (80-99); MONOCYTES % (AUTO) 8.4 % (1.0-10.0); NEUTROPHILS % (AUTO) 60.7 % (45.0-75.0); PLATELET COUNT 159 K/UL (150-450); RED BLOOD COUNT 3.86 M/UL (4.70-6.10); RED CELL DISTRIBUTION WIDTH 13.9 % (11.6-14.8); WHITE BLOOD COUNT 3.8 K/UL (4.8-10.8)
[2020-06-23 08:00] VITALS: BP 170/85
--- NOTE | 2020-06-23 08:29 | General Progress Note ---
Subjective ROS Limited/Unobtainable: No Allergies: Coded Allergies: No Known Allergies (Verified , 01/30/08) Objective Last 24 Hour Vital Signs Date Time Temp Pulse Resp B/P (MAP) Pulse Ox O2 Delivery O2 Flow Rate FiO2 06/23/20 05:23 159/76 06/23/20 04:00 62 06/23/20 04:00 97.6 68 24 143/75 (97) 98 06/23/20 00:00 97.4 60 24 164/83 (110) 99 06/23/20 00:00 68 06/22/20 21:24 141/84 06/22/20 21:00 Room Air 06/22/20 20:00 97.3 79 20 141/84 (103) 98 06/22/20 20:00 68 06/22/20 17:24 176/82 06/22/20 16:00 63 06/22/20 16:00 97.9 53 18 176/82 (113) 98 06/22/20 14:47 161/81 06/22/20 12:00 97.5 20 18 161/81 (107) 98 06/22/20 12:00 63 06/22/20 09:30 97.8 46 14 186/83 98 Room Air 06/22/20 09:20 43 13 169/88 100 Nasal Cannula 3 06/22/20 09:16 62 18 100 06/22/20 09:15 61 18 100 06/22/20 09:10 46 12 182/79 100 Nasal Cannula 3 06/22/20 09:05 48 12 174/83 100 Nasal Cannula 3 06/22/20 09:01 98.2 54 14 174/90 100 Nasal Cannula 3 06/22/20 09:00 Room Air Intake and Output 06/22/20 06/23/20 19:00 07:00 Intake Total 1004 ml 460 ml Output Total 400 ml 400 ml Balance 604 ml 60 ml Intake Free Water 400 ml IV Total 1004 ml Tube Feeding 60 ml Output Urine Total 400 ml 400 ml Estimated Blood Loss 0 ml # Bowel Movements 2 Laboratory Tests 06/22/20 12:30: PTT Mixing Study [Pending], APTT Patient/Control Mix [Pending], Mix PTT Incubation Time [Pending], Mix PTT Normal/Saline 1:1 Immediate [Pending], Thrombin Time Normal Plasma [Pending] 06/23/20 06:43: White Blood Count 3.8L, Red Blood Count 3.86L, Hemoglobin 12.2L, Hematocrit 35.3L, Mean Corpuscular Volume 91, Mean Corpuscular Hemoglobin 31.5H, Mean Corpuscular Hemoglobin Concent 34.4, Red Cell Distribution Width 13.9, Platelet Count 159, Mean Platelet Volume 9.0, Neutrophils (%) (Auto) 60.7, Lymphocytes (%) (Auto) 30.0, Monocytes (%) (Auto) 8.4, Eosinophils (%) (Auto) 0.2, Basophils (%) (Auto) 0.7, Sodium Level [Pending], Potassium Level [Pending], Chloride Level [Pending], Carbon Dioxide Level [Pending], Blood Urea Nitrogen [Pending], Creatinine [Pending], Estimat Glomerular Filtration Rate [Pending], Glucose Level [Pending], Calcium Level [Pending], Troponin I [Pending], Thyroid Stimulating Hormone (TSH) [Pending], Free Thyroxine [Pending], Hepatitis A IgM Antibody [Pending], Hepatitis B Surface Antigen [Pending], Hepatitis B Core IgM Antibody [Pending], Hepatitis C Antibody [Pending], HIV (1&2) Antibody Rapid [Pending] Height (Feet): 6 Height (Inches): 0.00 Weight (Pounds): 122 General Appearance: no apparent distress EENT: normal ENT inspection Neck: supple Cardiovascular: normal rate Respiratory/Chest: decreased breath sounds Abdomen: normal bowel sounds, non tender, soft Extremities: non-tender Assessment/Plan Status: unchanged Assessment/Plan: dysphagia with GT GIB s/p EGD and colonoscopy: SUMMARY OF FINDINGS: 1. Gastritis, status post biopsy. 2. G-tube in place without any obvious bleeding around the G-tube site. 3. Incomplete examination of the lower GI because of poor prep. 4. Internal hemorrhoids. RECOMMENDATIONS: 1. Given the stable H and H, would not attempt to do a colonoscopy at this time. 2. We will resume G-tube feedings. 3. Monitor H and H, transfuse as needed. 4. If the patient shows signs and symptoms of lower GI bleeding, reschedule colonoscopy for another day Carrillo Negrete MD Jun 23, 2020 08:29
[2020-06-23 08:30] LABS: ANION GAP 1 mmol/L (5-15); BLOOD UREA NITROGEN 12 mg/dL (7-18); CALCIUM 8.9 MG/DL (8.5-10.1); CARBON DIOXIDE 35 MMOL/L (21-32); CHLORIDE 106 MMOL/L (98-107); CREATININE 0.6 MG/DL (0.55-1.30); POTASSIUM 4.4 MMOL/L (3.5-5.1); SODIUM 142 MMOL/L (136-145)
[2020-06-23] MEDS: D5 1/2NS w/KCl 20mEq 1,000 ML IV SCH ×2 (08:57→21:20)
--- NOTE | 2020-06-23 11:30 | Consultation ---
DATE OF CONSULTATION: 06/22/2020 PSYCHOTHERAPY CONSULTATION PROGRESS NOTE CONSULTING PHYSICIAN: Kianna Saucedo PsyD TREATING ATTENDING: Max Pena DO HISTORY OF PRESENT ILLNESS: This patient is a 75-year-old male patient brought into the hospital for evaluation of GI pain. This patient does have a history of depression. Generally, the patient is from [facility], has increased bright bleeding from the . That is why he was brought into the hospital . I assessed the patient. The patient has helplessness and slightly confused. He does have a history of apparently depression according to nursing staff. At this time, he denies suicidal or homicidal thoughts of ideation. Denies any auditory or visual hallucinations. He however seems depressed because of his medical condition. PAST MEDICAL HISTORY: History of confusion and left hip injury. ALLERGIES: There are no known drug allergies. SUBSTANCE ABUSE HISTORY: There is no indication of alcohol use, illicit substance use. PSYCHIATRIC HISTORY: The patient does have a history of possible depression according to nursing staff. SOCIAL HISTORY: The patient is a 75-year-old male patient from [facility], financially sustained by [employer] MENTAL STATUS EXAMINATION: He is alert, oriented to person and place. Mood is dysphoric. Affect blunted. Thought process, disorganized. Thought content, confused. He has poor attention and concentration. Poor insight, judgment, and impulse control. DIAGNOSES: 1. Rule out major depressive disorder, recurrent, moderate, without psychotic features. 2. Left hip injury. 3. Psychosocial stressors, moderate. STRENGTHS: The patient is from a [facility] facility. WEAKNESS: At the present time he is depressed. I ASSESSED THIS PATIENT AND PROVIDED THE PATIENT WITH: 1. Reality orientation. Orientation of patient to person, place, time, and situation. 2. utilizing positive communication skills . Plan is to maintain medication compliance, use of positive coping skills and . 3. Psychotherapy service provided for this patient was 45 minutes. This clinician has reviewed the patient's chart and discussed treatment with treatment team. Kianna Saucedo PsyD. DR: CRISTO JOB#: [id number] CC:
--- NOTE | 2020-06-23 11:30 | Consultation ---
DATE OF CONSULTATION: 06/22/2020 CONSULTING PHYSICIAN: Eris Shine MD HISTORY OF PRESENT ILLNESS: The patient is a 75-year-old, admitted to the hospital on a new transfer from [facility] . The patient came in because he had rectal bleeding, but he is slightly confused and also under depression, poor historian, no family history but has depression and still has some nonsensical statements in his speech, confused and disorganized. MEDICAL HISTORY: He has a history of rectal bleeding, anemia, pancytopenia, and malnutrition. ALLERGIES: No known drug allergies. PSYCHOTROPIC MEDICATIONS ON ADMISSION: He is on Risperdal 0.5 mg at bedtime. PAIN ASSESSMENT: 0/10 pain. DEVELOPMENTAL PROBLEMS: Denies. SUBSTANCE ABUSE HISTORY: There is no known history of any drug or alcohol use at this time. SOCIAL HISTORY: The patient lives in [facility]. Financially supported by [email or web address] and Medicare. No legal problems. MENTAL STATUS EXAMINATION: This is a 75-year-old male. His appearance is disheveled. His attitude is agitated. Affect is labile. Intellect poor. He does not know current events, does not know last four Presidents. Mood depressed and anxious. Motor activity, psychomotor agitation. Attention span is poor. He cannot do serial sevens or spell world backwards. Orientation x2. He is oriented to person and place, not time or situation. Speech is pressured, nonsensical. Thought process, disorganized and illogical. Thought content, auditory hallucinations and paranoid delusions. Insight is poor because he does not recognize having a psych disorder. Judgment is poor because he does not accept consequences for his action. No signs of any suicidal or homicidal thoughts. Short-term memory, 2 out of 3 after 3-word recall, so poor short-term memory. Long-term is intact since he recalls long-term events of his life such as high school he went to. DIAGNOSES: 1. Major depressive disorder, mild, recurrent with psychotic features. 2. There is no secondary. 3. Medical includes rectal bleeding, anemia, pancytopenia. 4. Psychosocial stressors, financial. 5. Function impairment severe. PLAN: Treat the patient with medication regimen consisting of Risperdal 0.5 mg at bedtime and provide him with 20 minutes of insight-oriented psychotherapy to help him improve his cognition and reduce depression, anxiety. . Chart reviewed. Discussed with staff. . Eris Shine M.D. DR: KARMA JOB#: [id number] CC:
[2020-06-23 12:00] VITALS: BP 174/80
--- NOTE | 2020-06-23 14:15 | Diagnostic Imaging Report ---
Indication: Bilateral leg pain Technique: Grayscale and duplex images of the bilateral lower extremity veins Comparison: none Findings: Bilaterally, grayscale and duplex images demonstrate no evidence of intraluminal thrombus. Normal phasic Doppler waveforms, demonstrating normal augmentation response and no evidence of valvular insufficiency. Greater saphenous vein(s) and tibial veins are patent. Normal compressibility. Impression: Negative for evidence of lower extremity deep venous thrombosis bilaterally
[2020-06-23 16:00] VITALS: BP 117/62
--- NOTE | 2020-06-23 19:18 | Cardiac Electrophysiology PN ---
Assessment/Plan Assessment/Plan 1. Trifascicular block with first-degree AV block, right bundle-branch block and left anterior fascicular block as well as bradycardia with heart rate down to 20s per report. We will watch him on telemetry. Keep him off of any sinus or AV conrad blocking agents. 2. Hypertension. On hydralazine 25 mg three times daily. Avoid clonidine or beta-jose antonio or calcium channel blockers. 3. Dysphagia, status post PEG placement. 4. GI bleed, status post EGD that showed just gastritis. Colonoscopy not performed due to full perforation followed by Dr. Negrete. 5. Anemia due to GI bleed. Follow up with Dr. Sawyer and Dr. Negrete. Subjective Subjective Comfortable on Tele. PEG feeding ongoing. VSS. EF 65% Objective Last 24 Hour Vital Signs Date Time Temp Pulse Resp B/P (MAP) Pulse Ox O2 Delivery O2 Flow Rate FiO2 06/23/20 16:00 71 06/23/20 16:00 97.5 78 20 117/62 (80) 99 06/23/20 14:17 174/80 06/23/20 14:17 174/80 06/23/20 12:00 97.5 51 22 174/80 (111) 98 06/23/20 12:00 52 06/23/20 09:00 Room Air 06/23/20 08:00 59 06/23/20 08:00 97.4 61 22 170/85 (113) 98 06/23/20 05:23 159/76 06/23/20 04:00 62 06/23/20 04:00 97.6 68 24 143/75 (97) 98 06/23/20 00:00 97.4 60 24 164/83 (110) 99 06/23/20 00:00 68 06/22/20 21:24 141/84 06/22/20 21:00 Room Air 06/22/20 20:00 97.3 79 20 141/84 (103) 98 06/22/20 20:00 68 Intake and Output 06/22/20 06/23/20 19:00 07:00 Intake Total 1004 ml 460 ml Output Total 400 ml 400 ml Balance 604 ml 60 ml Intake Free Water 400 ml IV Total 1004 ml Tube Feeding 60 ml Output Urine Total 400 ml 400 ml Estimated Blood Loss 0 ml # Bowel Movements 2 Laboratory Tests Test 06/23/20 06:43 White Blood Count 3.8 K/UL (4.8-10.8) L Red Blood Count 3.86 M/UL (4.70-6.10) L Hemoglobin 12.2 G/DL (14.2-18.0) L Hematocrit 35.3 % (42.0-52.0) L Mean Corpuscular Volume 91 FL (80-99) Mean Corpuscular Hemoglobin 31.5 PG (27.0-31.0) H Mean Corpuscular Hemoglobin Concent 34.4 G/DL (32.0-36.0) Red Cell Distribution Width 13.9 % (11.6-14.8) Platelet Count 159 K/UL (150-450) Mean Platelet Volume 9.0 FL (6.5-10.1) Neutrophils (%) (Auto) 60.7 % (45.0-75.0) Lymphocytes (%) (Auto) 30.0 % (20.0-45.0) Monocytes (%) (Auto) 8.4 % (1.0-10.0) Eosinophils (%) (Auto) 0.2 % (0.0-3.0) Basophils (%) (Auto) 0.7 % (0.0-2.0) Sodium Level 142 MMOL/L (136-145) Potassium Level 4.4 MMOL/L (3.5-5.1) Chloride Level 106 MMOL/L (98-107) Carbon Dioxide Level 35 MMOL/L (21-32) H Anion Gap 1 mmol/L (5-15) L Blood Urea Nitrogen 12 mg/dL (7-18) Creatinine 0.6 MG/DL (0.55-1.30) Estimat Glomerular Filtration Rate > 60 mL/min (>60) Glucose Level 116 MG/DL (74-106) H Calcium Level 8.9 MG/DL (8.5-10.1) Troponin I 0.026 ng/mL (0.000-0.056) Thyroid Stimulating Hormone (TSH) 1.387 uiU/mL (0.358-3.740) Free Thyroxine 0.86 NG/DL (0.76-1.46) Hepatitis A IgM Antibody Pending Hepatitis B Surface Antigen Pending Hepatitis B Core IgM Antibody Pending Hepatitis C Antibody Pending HIV (1&2) Antibody Rapid Negative (NEGATIVE) Microbiology Date/Time Source Procedure Growth Status 06/21/20 18:05 Rectum Received 06/21/20 15:56 Nasopharynx SARS-CoV-2 RdRp Gene Assay - Final Complete 06/21/20 09:10 Nasopharynx Coronavirus COVID-19 PCR ([facility]) - Final Complete Objective HEAD AND NECK: no JVD. LUNGS: Clear. CARDIOVASCULAR: bradycardic. S1 and S2 with no gallop or murmur. ABDOMEN: Soft. EXTREMITIES: No pitting edema. He has a G-tube in place. Kobe Aguiar MD Jun 23, 2020 19:18
[2020-06-23 20:00] VITALS: BP 139/76
--- NOTE | 2020-06-23 21:02 | General Progress Note ---
Subjective ROS Limited/Unobtainable: Yes Allergies: Coded Allergies: No Known Allergies (Verified , 01/30/08) Objective Last 24 Hour Vital Signs Date Time Temp Pulse Resp B/P (MAP) Pulse Ox O2 Delivery O2 Flow Rate FiO2 06/23/20 16:00 71 06/23/20 16:00 97.5 78 20 117/62 (80) 99 06/23/20 14:17 174/80 06/23/20 14:17 174/80 06/23/20 12:00 97.5 51 22 174/80 (111) 98 06/23/20 12:00 52 06/23/20 09:00 Room Air 06/23/20 08:00 59 06/23/20 08:00 97.4 61 22 170/85 (113) 98 06/23/20 05:23 159/76 06/23/20 04:00 62 06/23/20 04:00 97.6 68 24 143/75 (97) 98 06/23/20 00:00 97.4 60 24 164/83 (110) 99 06/23/20 00:00 68 06/22/20 21:24 141/84 Intake and Output 06/22/20 06/23/20 19:00 07:00 Intake Total 1004 ml 460 ml Output Total 400 ml 400 ml Balance 604 ml 60 ml Intake Free Water 400 ml IV Total 1004 ml Tube Feeding 60 ml Output Urine Total 400 ml 400 ml Estimated Blood Loss 0 ml # Bowel Movements 2 Laboratory Tests 06/23/20 06:43: White Blood Count 3.8L, Red Blood Count 3.86L, Hemoglobin 12.2L, Hematocrit 35.3L, Mean Corpuscular Volume 91, Mean Corpuscular Hemoglobin 31.5H, Mean Corpuscular Hemoglobin Concent 34.4, Red Cell Distribution Width 13.9, Platelet Count 159, Mean Platelet Volume 9.0, Neutrophils (%) (Auto) 60.7, Lymphocytes (%) (Auto) 30.0, Monocytes (%) (Auto) 8.4, Eosinophils (%) (Auto) 0.2, Basophils (%) (Auto) 0.7, Sodium Level 142, Potassium Level 4.4, Chloride Level 106, Carbon Dioxide Level 35H, Anion Gap 1L, Blood Urea Nitrogen 12, Creatinine 0.6, Estimat Glomerular Filtration Rate > 60, Glucose Level 116H, Calcium Level 8.9, Troponin I 0.026, Thyroid Stimulating Hormone (TSH) 1.387, Free Thyroxine 0.86, Hepatitis A IgM Antibody [Pending], Hepatitis B Surface Antigen [Pending], Hep atitis B Core IgM Antibody [Pending], Hepatitis C Antibody [Pending], HIV (1&2) Antibody Rapid Negative Height (Feet): 6 Height (Inches): 0.00 Weight (Pounds): 122 Assessment/Plan Problem List: (1) Anemia ICD Codes: D64.9 - Anemia, unspecified SNOMED: 365769634 (2) Pancytopenia ICD Codes: D61.818 - Other pancytopenia SNOMED: 884984281 (3) Malnutrition ICD Codes: E46 - Unspecified protein-calorie malnutrition SNOMED: 97400300 (4) Gastrointestinal hemorrhage ICD Codes: K92.2 - Gastrointestinal hemorrhage, unspecified SNOMED: 66226896 Status: progressing, unchanged Assessment/Plan: gi bleed anemia pancytopenia malnutrition afebrile Colleen Hines MD Jun 23, 2020 21:02
[2020-06-24] VITALS: BP 130/76
[2020-06-24] MEDS: D5 1/2NS w/KCl 20mEq 1,000 ML IV SCH (01:34)
[2020-06-24 04:00] VITALS: BP 126/73
[2020-06-24] MEDS: HydrALAZINE 25mg tab ORAL SCH ×3 (05:52→21:31)
--- NOTE | 2020-06-24 06:26 | Hematology/Onc Progress Note ---
Assessment/Plan Assessment/Plan Assessment and Recs # Pancytopenia initially with Anemia due to gastrointestinal hemorrhage -> to undergo egd/colo with Gi --> anemia panel as needed, if downtrending hgb -> hold off transfusion at this time --> hgb 12.5-->12 --> plt 139-->159 --> wbc 3.9->3.5 --> colo/egd shows internal hemorrhoids and gastritis # Elevated ptt, unknown cause, may be due to apixaban, though not always consistent --> mixing study as needed --> difficult to reverse apixaban, side effects, now on hold # Azotemia on ivfs as needed -> bmp daily --> per renal # Dysphagia s/p peg with Gastritis, status post biopsy. --> G-tube in place without any obvious bleeding around the G-tube site # Dvt ppx scds Appreciate consultation and dw RN Subjective HEENT: Denies: no symptoms, eye pain, blurred vision, tearing, double vision, ear pain, ear discharge, nose pain, nose congestion, throat pain, throat swelling, mouth pain, mouth swelling, other Cardiovascular: Denies: no symptoms, chest pain, edema, irregular heart rate, lightheadedness, palpitations, syncope, other Gastrointestinal/Abdominal: Denies: no symptoms, abdomen distended, abdominal pain, black stools, tarry stools, blood in stool, constipated, diarrhea, difficulty swallowing, nausea, poor appetite, poor fluid intake, rectal bleeding, vomiting, other Genitourinary: Denies: no symptoms, burning, discharge, frequency, flank pain, hematuria, incontinence, pain, urgency, other Neurologic/Psychiatric: Denies: no symptoms, anxiety, depressed, emotional problems, headache, numbness, paresthesia, pre-existing deficit, seizure, tingling, tremors, weakness, other Endocrine: Denies: no symptoms, excessive sweating, flushing, intolerance to cold, intolerance to heat, increased hunger, increased thirst, increased urine, unexplained weight gain, unexplained weight loss, other Hematologic/Lymphatic: Denies: no symptoms, anemia, easy bleeding, easy bruising, adenopathy, other Allergies: Coded Allergies: No Known Allergies (Verified , 01/30/08) Subjective 06/23 labs are noted, no bleeding, meds noted, s/p endoscopy 06/24 alert, oriented, no bleeding, with gtube feeds ongoing Objective Objective Current Medications Medications (Trade) Dose Ordered Sig/Madelyn Route PRN Reason Start Time Stop Time Status Last Admin Dose Admin Dextrose/ Electrolytes 1,000 ml @ 75 mls/hr [id number] IV 06/21/20 16:00 07/21/20 15:59 06/24/20 01:34 Hydralazine HCl (Apresoline) 10 mg Q4H PRN IV htn 06/22/20 12:29 09/20/20 12:28 06/23/20 14:17 Hydralazine HCl (Apresoline) 25 mg EVERY 8 HOURS ORAL 06/22/20 14:00 09/20/20 13:59 06/24/20 05:52 Lorazepam (Ativan) 1 mg Q6H PRN ORAL For Anxiety 06/22/20 23:00 06/29/20 22:59 Risperidone (RisperDAL) 0.5 mg QHS ORAL 06/23/20 21:00 08/07/20 20:59 06/23/20 21:43 Last 24 Hour Vital Signs Date Time Temp Pulse Resp B/P (MAP) Pulse Ox O2 Delivery O2 Flow Rate FiO2 06/24/20 05:52 126/73 06/24/20 04:00 59 06/24/20 04:00 97.9 54 20 126/73 (90) 99 06/24/20 00:00 97.5 60 20 130/76 (94) 98 06/24/20 00:00 59 06/23/20 21:42 139/76 06/23/20 21:00 Room Air 06/23/20 20:00 97.9 72 20 139/76 (97) 99 06/23/20 20:00 77 06/23/20 16:00 71 06/23/20 16:00 97.5 78 20 117/62 (80) 99 06/23/20 14:17 174/80 06/23/20 14:17 174/80 06/23/20 12:00 97.5 51 22 174/80 (111) 98 06/23/20 12:00 52 06/23/20 09:00 Room Air 06/23/20 08:00 59 06/23/20 08:00 97.4 61 22 170/85 (113) 98 06/23/20 05:23 159/76 06/23/20 04:00 62 06/23/20 04:00 97.6 68 24 143/75 (97) 98 06/23/20 00:00 97.4 60 24 164/83 (110) 99 06/23/20 00:00 68 06/22/20 21:24 141/84 06/22/20 21:00 Room Air 06/22/20 20:00 97.3 79 20 141/84 (103) 98 06/22/20 20:00 68 06/22/20 17:24 176/82 06/22/20 16:00 63 06/22/20 16:00 97.9 53 18 176/82 (113) 98 06/22/20 14:47 161/81 06/22/20 12:00 97.5 20 18 161/81 (107) 98 06/22/20 12:00 63 06/22/20 09:30 97.8 46 14 186/83 98 Room Air 06/22/20 09:20 43 13 169/88 100 Nasal Cannula 3 06/22/20 09:16 62 18 100 06/22/20 09:15 61 18 100 06/22/20 09:10 46 12 182/79 100 Nasal Cannula 3 06/22/20 09:05 48 12 174/83 100 Nasal Cannula 3 06/22/20 09:01 98.2 54 14 174/90 100 Nasal Cannula 3 06/22/20 09:00 Room Air 06/22/20 08:00 96.9 62 18 159/83 (108) 97 06/22/20 08:00 63 Intake and Output 06/23/20 06/24/20 19:00 07:00 Intake Total 60 ml Output Total 850 ml Balance -790 ml Tube Feeding 60 ml Output Urine Total 850 ml Labs Test 06/21/20 08:35 06/22/20 08:04 06/22/20 12:30 06/23/20 06:43 White Blood Count 5.4 K/UL (4.8-10.8) 3.9 K/UL (4.8-10.8) 3.8 K/UL (4.8-10.8) Red Blood Count 4.03 M/UL (4.70-6.10) 3.76 M/UL (4.70-6.10) 3.86 M/UL (4.70-6.10) Hemoglobin 12.5 G/DL (14.2-18.0) 12.0 G/DL (14.2-18.0) 12.2 G/DL (14.2-18.0) Hematocrit 36.0 % (42.0-52.0) 33.7 % (42.0-52.0) 35.3 % (42.0-52.0) Mean Corpuscular Volume 89 FL (80-99) 90 FL (80-99) 91 FL (80-99) Mean Corpuscular Hemoglobin 30.9 PG (27.0-31.0) 31.8 PG (27.0-31.0) 31.5 PG (27.0-31.0) Mean Corpuscular Hemoglobin Concent 34.6 G/DL (32.0-36.0) 35.5 G/DL (32.0-36.0) 34.4 G/DL (32.0-36.0) Red Cell Distribution Width 14.3 % (11.6-14.8) 13.3 % (11.6-14.8) 13.9 % (11.6-14.8) Platelet Count 172 K/UL (150-450) 149 K/UL (150-450) 159 K/UL (150-450) Mean Platelet Volume 8.3 FL (6.5-10.1) 9.0 FL (6.5-10.1) 9.0 FL (6.5-10.1) Neutrophils (%) (Auto) 64.0 % (45.0-75.0) 61.2 % (45.0-75.0) 60.7 % (45.0-75.0) Lymphocytes (%) (Auto) 26.9 % (20.0-45.0) 29.5 % (20.0-45.0) 30.0 % (20.0-45.0) Monocytes (%) (Auto) 8.2 % (1.0-10.0) 8.3 % (1.0-10.0) 8.4 % (1.0-10.0) Eosinophils (%) (Auto) 0.3 % (0.0-3.0) 0.2 % (0.0-3.0) 0.2 % (0.0-3.0) Basophils (%) (Auto) 0.6 % (0.0-2.0) 0.9 % (0.0-2.0) 0.7 % (0.0-2.0) Prothrombin Time 11.5 SEC (9.30-11.50) Prothromb Time International Ratio 1.0 (0.9-1.1) Activated Partial Thromboplast Time 48 SEC (23-33) Sodium Level 141 MMOL/L (136-145) 142 MMOL/L (136-145) 142 MMOL/L (136-145) Potassium Level 3.9 MMOL/L (3.5-5.1) 3.5 MMOL/L (3.5-5.1) 4.4 MMOL/L (3.5-5.1) Chloride Level 105 MMOL/L (98-107) 106 MMOL/L (98-107) 106 MMOL/L (98-107) Carbon Dioxide Level 34 MMOL/L (21-32) 33 MMOL/L (21-32) 35 MMOL/L (21-32) Anion Gap 2 mmol/L (5-15) 3 mmol/L (5-15) 1 mmol/L (5-15) Blood Urea Nitrogen 21 mg/dL (7-18) 12 mg/dL (7-18) 12 mg/dL (7-18) Creatinine 0.7 MG/DL (0.55-1.30) 0.6 MG/DL (0.55-1.30) 0.6 MG/DL (0.55-1.30) Estimat Glomerular Filtration Rate > 60 mL/min (>60) > 60 mL/min (>60) > 60 mL/min (>60) Glucose Level 85 MG/DL (74-106) 101 MG/DL (74-106) 116 MG/DL (74-106) Calcium Level 8.8 MG/DL (8.5-10.1) 8.5 MG/DL (8.5-10.1) 8.9 MG/DL (8.5-10.1) Total Bilirubin 0.4 MG/DL (0.2-1.0) Aspartate Amino Transf (AST/SGOT) 27 U/L (15-37) Alanine Aminotransferase (ALT/SGPT) 37 U/L (12-78) Alkaline Phosphatase 82 U/L (46-116) Troponin I 0.026 ng/mL (0.000-0.056) 0.026 ng/mL (0.000-0.056) Total Protein 5.9 G/DL (6.4-8.2) Albumin 2.9 G/DL (3.4-5.0) Globulin 3.0 g/dL Albumin/Globulin Ratio 1.0 (1.0-2.7) Lipase 152 U/L (73-393) Thyroid Stimulating Hormone (TSH) 1.387 uiU/mL (0.358-3.740) Free Thyroxine 0.86 NG/DL (0.76-1.46) HIV (1&2) Antibody Rapid Negative (NEGATIVE) Height (Feet): 6 Height (Inches): 0.00 Weight (Pounds): 122 Objective Physical Exam General: Awake and alert, no acute distress HEENT: NC/AT. EOMI. Cardiovascular: RRR. S1 and S2 normal. No murmur appreciated Resp: Normal work of breathing. No cough, wheezing or crackles appreciated Abdomen: Abdomen is soft, nondistended. Nontender. G-tube in place ++ Rectal: Gross blood mixed with stool Skin: Intact. No abrasions, laceration or rash over the exposed skin MSK: Frail, decreased muscle bulk. Neuro: Awake and alert. Mentating appropriately. Nicholas Sawyer MD Jun 24, 2020 06:26
--- NOTE | 2020-06-24 07:49 | Psychiatry Consultation ---
Psychiatry Consultation Psychiatry Consultation Chief Complaint: Gastrointestinal Bleed History of Present Illness: 75-year-old male patient with GI bleeding he has some confusion and disorganized thought process some psychomotor agitation and his cognition overall has declined below his baseline worsened by the stress of his medical illness advise attending has requested daily psychiatric consultation with the goal of improving his overall cognition and reducing psychomotor agitation and mood lability Mental status examination: 75-year-old male has apparently several desire to the right side of his affect is labile intellect poor mood depressed anxious motor activity psychomotor agitation attention span is poor orientation x2 speech low volume slurred thought process disorganized illogical insight judgment is poor Allergies: Coded Allergies: No Known Allergies (Verified , 01/30/08) Medication History Scheduled Acetaminophen (Acetaminophen 8 Hour), 650 MG ORAL Q6H, (Reported) Ascorbic Acid* (Vitamin C*), 500 MG ORAL DAILY, (Reported) Clonidine Hcl* (Catapres*), 0.1 MG ORAL EVERY 6 HOURS, (Reported) Docusate Sodium* (Colace*), 100 MG ORAL DAILY, (Reported) Doxazosin Mesylate* (Doxazosin Mesylate*), 2 MG GT DAILY, (Reported) Hydralazine Hcl* (Hydralazine Hcl*), 50 MG ORAL TWICE A DAY, (Reported) Lactobacillus Acidophilus (Acidophilus), 1 EACH GT DAILY, (Reported) Losartan Potassium* (Cozaar*), 100 MG ORAL DAILY, (Reported) Multivitamin With Minerals (Multivitamins With Minerals*), 1 TAB ORAL DAILY, (Reported) Nifedipine (Nifedipine*), 60 MG ORAL DAILY, (Reported) Risperidone* (Risperdal*), 0.5 MG ORAL BEDTIME, (Reported) Sucralfate* (Carafate*), 1 GM ORAL THREE TIMES A DAY, (Reported) Scheduled PRN Nitroglycerin (Nitrostat), 0.4 MG SL Q5M X3 DOSES PRN for CHEST PAIN, (Reported) Objective Data Height (Feet): 6 Height (Inches): 0.00 Weight (Pounds): 122 Assessment/Plan Assessment/Plan: Treat this patient with Risperdal 0.5 mg p.o. nightly and Ativan 1 every 6 hours as needed anxiety agitation 20 minutes of cognitive behavioral therapy provided while monitoring positive and negative thoughts help convert his negative thoughts to more positive thoughts to reduce depression anxiety mood lability Diagnosis [place] I: C depression with psychotic features rule out paranoid schizophrenia Eris Shine MD Jun 24, 2020 07:49
[2020-06-24 08:00] VITALS: BP 150/77
[2020-06-24 09:01] LABS: HEMATOCRIT 31.2 % (42.0-52.0); HEMOGLOBIN 10.6 G/DL (14.2-18.0); MEAN CORPUSCULAR VOLUME 92 FL (80-99); PLATELET COUNT 138 K/UL (150-450); RED BLOOD COUNT 3.38 M/UL (4.70-6.10); RED CELL DISTRIBUTION WIDTH 13.9 % (11.6-14.8); WHITE BLOOD COUNT 3.2 K/UL (4.8-10.8)
--- NOTE | 2020-06-24 10:08 | General Progress Note ---
Subjective ROS Limited/Unobtainable: No Allergies: Coded Allergies: No Known Allergies (Verified , 01/30/08) Objective Last 24 Hour Vital Signs Date Time Temp Pulse Resp B/P (MAP) Pulse Ox O2 Delivery O2 Flow Rate FiO2 06/24/20 09:45 50 06/24/20 05:52 126/73 06/24/20 04:00 59 06/24/20 04:00 97.9 54 20 126/73 (90) 99 06/24/20 00:00 97.5 60 20 130/76 (94) 98 06/24/20 00:00 59 06/23/20 21:42 139/76 06/23/20 21:00 Room Air 06/23/20 20:00 97.9 72 20 139/76 (97) 99 06/23/20 20:00 77 06/23/20 16:00 71 06/23/20 16:00 97.5 78 20 117/62 (80) 99 06/23/20 14:17 174/80 06/23/20 14:17 174/80 06/23/20 12:00 97.5 51 22 174/80 (111) 98 06/23/20 12:00 52 Intake and Output 06/23/20 06/24/20 19:00 07:00 Intake Total 60 ml Output Total 850 ml 600 ml Balance -790 ml -600 ml Tube Feeding 60 ml Output Urine Total 850 ml 600 ml # Bowel Movements 1 Laboratory Tests 06/24/20 07:35: White Blood Count 3.2L, Red Blood Count 3.38L, Hemoglobin 10.6L, Hematocrit 31.2L, Mean Corpuscular Volume 92, Mean Corpuscular Hemoglobin 31.4H, Mean Corpuscular Hemoglobin Concent 34.1, Red Cell Distribution Width 13.9, Platelet Count 138L, Mean Platelet Volume 8.1, Neutrophils (%) (Auto) , Lymphocytes (%) (Auto) , Monocytes (%) (Auto) , Eosinophils (%) (Auto) , Basophils (%) (Auto) , Neutrophils % (Manual) [Pending], Lymphocytes % (Manual) [Pending], Platelet Estimate [Pending], Platelet Morphology [Pending] Height (Feet): 6 Height (Inches): 0.00 Weight (Pounds): 122 General Appearance: lethargic EENT: normal ENT inspection Neck: supple Cardiovascular: normal rate Respiratory/Chest: decreased breath sounds Abdomen: normal bowel sounds, non tender, soft Extremities: non-tender Assessment/Plan Status: progressing, unchanged Assessment/Plan: dysphagia with GT GIB s/p EGD and colonoscopy: SUMMARY OF FINDINGS: 1. Gastritis, status post biopsy. 2. G-tube in place without any obvious bleeding around the G-tube site. 3. Incomplete examination of the lower GI because of poor prep. 4. Internal hemorrhoids. RECOMMENDATIONS: given drop in H&H and admission diagnosis of rectal bleed will try colonoscopy again tomorrow Carrillo Negrete MD Jun 24, 2020 10:08
[2020-06-24 12:00] VITALS: BP 123/69
--- NOTE | 2020-06-24 12:18 | Cardiac Electrophysiology PN ---
Assessment/Plan Assessment/Plan 1. Trifascicular block with first-degree AV block, right bundle-branch block and left anterior fascicular block as well as bradycardia with heart rate down to 20s per report. Still angie in 40s. Keep him off of any sinus or AV conrad blocking agents. May need PPM implant. 2. Hypertension. On hydralazine 25 mg three times daily. Avoid clonidine or beta-jose antonio or calcium channel blockers. 3. Dysphagia, status post PEG placement. 4. GI bleed, status post EGD that showed just gastritis. Colonoscopy not performed due to full perforation followed by Dr. Negrete. 5. Anemia due to GI bleed. FU with Dr. Sawyer and Dr. Negrete. Subjective Subjective Comfortable on Tele. PEG feeding and iv fluid ongoing. EF 65%. HR in 40s at times Objective Last 24 Hour Vital Signs Date Time Temp Pulse Resp B/P (MAP) Pulse Ox O2 Delivery O2 Flow Rate FiO2 06/24/20 09:45 50 06/24/20 09:00 Room Air 06/24/20 08:00 97.8 51 20 150/77 (101) 99 06/24/20 05:52 126/73 06/24/20 04:00 59 06/24/20 04:00 97.9 54 20 126/73 (90) 99 06/24/20 00:00 97.5 60 20 130/76 (94) 98 06/24/20 00:00 59 06/23/20 21:42 139/76 06/23/20 21:00 Room Air 06/23/20 20:00 97.9 72 20 139/76 (97) 99 06/23/20 20:00 77 06/23/20 16:00 71 06/23/20 16:00 97.5 78 20 117/62 (80) 99 06/23/20 14:17 174/80 06/23/20 14:17 174/80 Intake and Output 06/23/20 06/24/20 19:00 07:00 Intake Total 60 ml Output Total 850 ml 600 ml Balance -790 ml -600 ml Tube Feeding 60 ml Output Urine Total 850 ml 600 ml # Bowel Movements 1 Laboratory Tests Test 06/24/20 07:35 White Blood Count 3.2 K/UL (4.8-10.8) L Red Blood Count 3.38 M/UL (4.70-6.10) L Hemoglobin 10.6 G/DL (14.2-18.0) L Hematocrit 31.2 % (42.0-52.0) L Mean Corpuscular Volume 92 FL (80-99) Mean Corpuscular Hemoglobin 31.4 PG (27.0-31.0) H Mean Corpuscular Hemoglobin Concent 34.1 G/DL (32.0-36.0) Red Cell Distribution Width 13.9 % (11.6-14.8) Platelet Count 138 K/UL (150-450) L Mean Platelet Volume 8.1 FL (6.5-10.1) Neutrophils (%) (Auto) % (45.0-75.0) Lymphocytes (%) (Auto) % (20.0-45.0) Monocytes (%) (Auto) % (1.0-10.0) Eosinophils (%) (Auto) % (0.0-3.0) Basophils (%) (Auto) % (0.0-2.0) Differential Total Cells Counted 100 Neutrophils % (Manual) 62 % (45-75) Lymphocytes % (Manual) 32 % (20-45) Monocytes % (Manual) 6 % (1-10) Eosinophils % (Manual) 0 % (0-3) Basophils % (Manual) 0 % (0-2) Band Neutrophils 0 % (0-8) Platelet Estimate Decreased L Platelet Morphology Normal Red Blood Cell Morphology Normal Microbiology Date/Time Source Procedure Growth Status 06/21/20 18:05 Rectum VRE Culture - Final NO VANCOMYCIN RESISTANT ENTEROCOCCUS ... Complete 06/21/20 18:05 Rectum - Final NO CARBAPENEM-RESISTANT ENTEROBACTERI... Complete 06/21/20 15:56 Nasopharynx SARS-CoV-2 RdRp Gene Assay - Final Complete Objective HEAD AND NECK: No JVD. LUNGS: Clear. CARDIOVASCULAR: Bradycardic S1 and S2 with no gallop or murmur. ABDOMEN: Soft. EXTREMITIES: No pitting edema. Has a G-tube in place. Kobe Aguiar MD Jun 24, 2020 12:18
[2020-06-24] MEDS ORDERED: Golytely 4L ORAL SCH (14:00)
[2020-06-24 16:00] VITALS: BP 144/77
[2020-06-24 20:00] VITALS: BP 167/81
--- NOTE | 2020-06-24 21:19 | General Progress Note ---
Subjective ROS Limited/Unobtainable: Yes Allergies: Coded Allergies: No Known Allergies (Verified , 01/30/08) Objective Last 24 Hour Vital Signs Date Time Temp Pulse Resp B/P (MAP) Pulse Ox O2 Delivery O2 Flow Rate FiO2 06/24/20 16:00 97.7 56 20 144/77 (99) 97 06/24/20 16:00 53 06/24/20 14:00 123/69 06/24/20 12:00 97.8 58 20 123/69 (87) 98 06/24/20 12:00 60 06/24/20 09:45 50 06/24/20 09:00 Room Air 06/24/20 08:00 97.8 51 20 150/77 (101) 99 06/24/20 05:52 126/73 06/24/20 04:00 59 06/24/20 04:00 97.9 54 20 126/73 (90) 99 06/24/20 00:00 97.5 60 20 130/76 (94) 98 06/24/20 00:00 59 06/23/20 21:42 139/76 Intake and Output 06/23/20 06/24/20 19:00 07:00 Intake Total 60 ml Output Total 850 ml 600 ml Balance -790 ml -600 ml Tube Feeding 60 ml Output Urine Total 850 ml 600 ml # Bowel Movements 1 Laboratory Tests 06/24/20 07:35: White Blood Count 3.2L, Red Blood Count 3.38L, Hemoglobin 10.6L, Hematocrit 31.2L, Mean Corpuscular Volume 92, Mean Corpuscular Hemoglobin 31.4H, Mean Corpuscular Hemoglobin Concent 34.1, Red Cell Distribution Width 13.9, Platelet Count 138L, Mean Platelet Volume 8.1, Neutrophils (%) (Auto) , Lymphocytes (%) (Auto) , Monocytes (%) (Auto) , Eosinophils (%) (Auto) , Basophils (%) (Auto) , Differential Total Cells Counted 100, Neutrophils % (Manual) 62, Lymphocytes % (Manual) 32, Monocytes % (Manual) 6, Eosinophils % (Manual) 0, Basophils % (Manual) 0, Band Neutrophils 0, Platelet Estimate DecreasedL, Platelet Morphology Normal, Red Blood Cell Morphology Normal Height (Feet): 6 Height (Inches): 0.00 Weight (Pounds): 122 Assessment/Plan Problem List: (1) Anemia ICD Codes: D64.9 - Anemia, unspecified SNOMED: 780218026 (2) Pancytopenia ICD Codes: D61.818 - Other pancytopenia SNOMED: 870027405 (3) Malnutrition ICD Codes: E46 - Unspecified protein-calorie malnutrition SNOMED: 75334478 (4) Gastrointestinal hemorrhage ICD Codes: K92.2 - Gastrointestinal hemorrhage, unspecified SNOMED: 52046395 Status: progressing, unchanged Assessment/Plan: gi bleed anemia pancytopenia stable h/h monitor for bleeding afebrile Colleen Hines MD Jun 24, 2020 21:19
[2020-06-25] VITALS: BP 155/72
[2020-06-25] MEDS: D5 1/2NS w/KCl 20mEq 1,000 ML IV SCH ×2 (02:23→13:47)
[2020-06-25 04:00] VITALS: BP 143/62
--- NOTE | 2020-06-25 06:28 | Hematology/Onc Progress Note ---
Assessment/Plan Assessment/Plan Assessment and Recs # Pancytopenia initially with Anemia due to gastrointestinal hemorrhage -> to undergo egd/colo with Gi --> anemia panel as needed, if downtrending hgb -> hold off transfusion at this time --> hgb 12.5-->12 --> plt 139-->159 --> wbc 3.9->3.5 --> colo/egd shows internal hemorrhoids and gastritis # Elevated ptt, unknown cause, may be due to apixaban, though not always consistent --> mixing study as needed --> difficult to reverse apixaban, side effects, now on hold # Azotemia on ivfs as needed -> bmp daily --> per renal # Dysphagia s/p peg with Gastritis, status post biopsy. --> G-tube in place without any obvious bleeding around the G-tube site # Dvt ppx scds Appreciate consultation and dw RN Subjective Constitutional: Denies: no symptoms, chills, fever, malaise, weakness, other HEENT: Denies: no symptoms, eye pain, blurred vision, tearing, double vision, ear pain, ear discharge, nose pain, nose congestion, throat pain, throat swelling, mouth pain, mouth swelling, other Gastrointestinal/Abdominal: Denies: no symptoms, abdomen distended, abdominal pain, black stools, tarry stools, blood in stool, constipated, diarrhea, difficulty swallowing, nausea, poor appetite, poor fluid intake, rectal bleeding, vomiting, other Genitourinary: Denies: no symptoms, burning, discharge, frequency, flank pain, hematuria, incontinence, pain, urgency, other Neurologic/Psychiatric: Denies: no symptoms, anxiety, depressed, emotional problems, headache, numbness, paresthesia, pre-existing deficit, seizure, tingling, tremors, weakness, other Endocrine: Denies: no symptoms, excessive sweating, flushing, intolerance to cold, intolerance to heat, increased hunger, increased thirst, increased urine, unexplained weight gain, unexplained weight loss, other Hematologic/Lymphatic: Denies: no symptoms, anemia, easy bleeding, easy bruising, adenopathy, other Allergies: Coded Allergies: No Known Allergies (Verified , 01/30/08) Subjective 06/23 labs are noted, no bleeding, meds noted, s/p endoscopy 06/24 alert, oriented, no bleeding, with gtube feeds ongoing 06/25 meds oted, no bleeding, with gt, prep for colo per rn Objective Objective Current Medications Medications (Trade) Dose Ordered Sig/Madelyn Route PRN Reason Start Time Stop Time Status Last Admin Dose Admin Dextrose/ Electrolytes 1,000 ml @ 75 mls/hr [id number] IV 06/21/20 16:00 07/21/20 15:59 06/25/20 02:23 Hydralazine HCl (Apresoline) 10 mg Q4H PRN IV htn 06/22/20 12:29 09/20/20 12:28 06/23/20 14:17 Hydralazine HCl (Apresoline) 25 mg EVERY 8 HOURS ORAL 06/22/20 14:00 09/20/20 13:59 06/24/20 21:31 Lorazepam (Ativan) 1 mg Q6H PRN ORAL For Anxiety 06/22/20 23:00 06/29/20 22:59 Risperidone (RisperDAL) 0.5 mg QHS ORAL 06/23/20 21:00 08/07/20 20:59 06/24/20 21:31 Last 24 Hour Vital Signs Date Time Temp Pulse Resp B/P (MAP) Pulse Ox O2 Delivery O2 Flow Rate FiO2 06/25/20 04:00 54 06/25/20 04:00 97.7 57 16 143/62 (89) 98 06/25/20 00:00 60 06/25/20 00:00 97.7 54 20 155/72 (99) 98 06/24/20 21:31 167/81 06/24/20 21:00 Room Air 06/24/20 20:00 60 06/24/20 20:00 97.7 61 20 167/81 (109) 98 06/24/20 16:00 97.7 56 20 144/77 (99) 97 06/24/20 16:00 53 06/24/20 14:00 123/69 06/24/20 12:00 97.8 58 20 123/69 (87) 98 06/24/20 12:00 60 06/24/20 09:45 50 06/24/20 09:00 Room Air 06/24/20 08:00 97.8 51 20 150/77 (101) 99 06/24/20 05:52 126/73 06/24/20 04:00 59 06/24/20 04:00 97.9 54 20 126/73 (90) 99 06/24/20 00:00 97.5 60 20 130/76 (94) 98 06/24/20 00:00 59 06/23/20 21:42 139/76 06/23/20 21:00 Room Air 06/23/20 20:00 97.9 72 20 139/76 (97) 99 06/23/20 20:00 77 06/23/20 16:00 71 06/23/20 16:00 97.5 78 20 117/62 (80) 99 06/23/20 14:17 174/80 06/23/20 14:17 174/80 06/23/20 12:00 97.5 51 22 174/80 (111) 98 06/23/20 12:00 52 06/23/20 09:00 Room Air 06/23/20 08:00 59 06/23/20 08:00 97.4 61 22 170/85 (113) 98 Intake and Output 06/24/20 06/25/20 19:00 07:00 Output Total 1100 ml Balance -1100 ml Output Urine Total 1100 ml # Voids 1 Labs Test 06/22/20 08:04 06/22/20 12:30 06/23/20 06:43 06/24/20 07:35 White Blood Count 3.9 K/UL (4.8-10.8) 3.8 K/UL (4.8-10.8) 3.2 K/UL (4.8-10.8) Red Blood Count 3.76 M/UL (4.70-6.10) 3.86 M/UL (4.70-6.10) 3.38 M/UL (4.70-6.10) Hemoglobin 12.0 G/DL (14.2-18.0) 12.2 G/DL (14.2-18.0) 10.6 G/DL (14.2-18.0) Hematocrit 33.7 % (42.0-52.0) 35.3 % (42.0-52.0) 31.2 % (42.0-52.0) Mean Corpuscular Volume 90 FL (80-99) 91 FL (80-99) 92 FL (80-99) Mean Corpuscular Hemoglobin 31.8 PG (27.0-31.0) 31.5 PG (27.0-31.0) 31.4 PG (27.0-31.0) Mean Corpuscular Hemoglobin Concent 35.5 G/DL (32.0-36.0) 34.4 G/DL (32.0-36.0) 34.1 G/DL (32.0-36.0) Red Cell Distribution Width 13.3 % (11.6-14.8) 13.9 % (11.6-14.8) 13.9 % (11.6-14.8) Platelet Count 149 K/UL (150-450) 159 K/UL (150-450) 138 K/UL (150-450) Mean Platelet Volume 9.0 FL (6.5-10.1) 9.0 FL (6.5-10.1) 8.1 FL (6.5-10.1) Neutrophils (%) (Auto) 61.2 % (45.0-75.0) 60.7 % (45.0-75.0) % (45.0-75.0) Lymphocytes (%) (Auto) 29.5 % (20.0-45.0) 30.0 % (20.0-45.0) % (20.0-45.0) Monocytes (%) (Auto) 8.3 % (1.0-10.0) 8.4 % (1.0-10.0) % (1.0-10.0) Eosinophils (%) (Auto) 0.2 % (0.0-3.0) 0.2 % (0.0-3.0) % (0.0-3.0) Basophils (%) (Auto) 0.9 % (0.0-2.0) 0.7 % (0.0-2.0) % (0.0-2.0) Sodium Level 142 MMOL/L (136-145) 142 MMOL/L (136-145) Potassium Level 3.5 MMOL/L (3.5-5.1) 4.4 MMOL/L (3.5-5.1) Chloride Level 106 MMOL/L (98-107) 106 MMOL/L (98-107) Carbon Dioxide Level 33 MMOL/L (21-32) 35 MMOL/L (21-32) Anion Gap 3 mmol/L (5-15) 1 mmol/L (5-15) Blood Urea Nitrogen 12 mg/dL (7-18) 12 mg/dL (7-18) Creatinine 0.6 MG/DL (0.55-1.30) 0.6 MG/DL (0.55-1.30) Estimat Glomerular Filtration Rate > 60 mL/min (>60) > 60 mL/min (>60) Glucose Level 101 MG/DL (74-106) 116 MG/DL (74-106) Calcium Level 8.5 MG/DL (8.5-10.1) 8.9 MG/DL (8.5-10.1) Troponin I 0.026 ng/mL (0.000-0.056) Thyroid Stimulating Hormone (TSH) 1.387 uiU/mL (0.358-3.740) Free Thyroxine 0.86 NG/DL (0.76-1.46) Hepatitis A IgM Antibody Negative (Negative) Hepatitis B Surface Antigen Negative (Negative) Hepatitis B Core IgM Antibody Negative (Negative) Hepatitis C Antibody <0.1 s/co ratio HIV (1&2) Antibody Rapid Negative (NEGATIVE) Differential Total Cells Counted 100 Neutrophils % (Manual) 62 % (45-75) Lymphocytes % (Manual) 32 % (20-45) Monocytes % (Manual) 6 % (1-10) Eosinophils % (Manual) 0 % (0-3) Basophils % (Manual) 0 % (0-2) Band Neutrophils 0 % (0-8) Platelet Estimate Decreased Platelet Morphology Normal Red Blood Cell Morphology Normal Height (Feet): 6 Height (Inches): 0.00 Weight (Pounds): 122 Objective Physical Exam General: Awake and alert, no acute distress HEENT: NC/AT. EOMI. Cardiovascular: RRR. S1 and S2 normal. No murmur appreciated Resp: Normal work of breathing. No cough, wheezing or crackles appreciated Abdomen: Abdomen is soft, nondistended. Nontender. G-tube in place ++ Rectal: Gross blood mixed with stool Skin: Intact. No abrasions, laceration or rash over the exposed skin MSK: Frail, decreased muscle bulk. Neuro: Awake and alert. Mentating appropriately. Nicholas Sawyer MD Jun 25, 2020 06:28
[2020-06-25] MEDS: HydrALAZINE 25mg tab ORAL SCH ×3 (06:39→21:35)
[2020-06-25 08:00] VITALS: BP 152/75
[2020-06-25 08:43] LABS: HEMATOCRIT 32.7 % (42.0-52.0); HEMOGLOBIN 11.4 G/DL (14.2-18.0); MEAN CORPUSCULAR VOLUME 91 FL (80-99); PLATELET COUNT 120 K/UL (150-450); RED BLOOD COUNT 3.61 M/UL (4.70-6.10); RED CELL DISTRIBUTION WIDTH 13.8 % (11.6-14.8); WHITE BLOOD COUNT 2.9 K/UL (4.8-10.8)
[2020-06-25 08:46] LABS: BASOPHILS % (AUTO) 1.5 % (0.0-2.0); EOSINOPHILS % (AUTO) 0.3 % (0.0-3.0); LYMPHOCYTES % (AUTO) 9.8 % (20.0-45.0); MONOCYTES % (AUTO) 11.2 % (1.0-10.0); NEUTROPHILS % (AUTO) 77.3 % (45.0-75.0)
[2020-06-25 08:51] LABS: ANION GAP 4 mmol/L (5-15); BLOOD UREA NITROGEN 10 mg/dL (7-18); CALCIUM 8.1 MG/DL (8.5-10.1); CARBON DIOXIDE 33 MMOL/L (21-32); CHLORIDE 104 MMOL/L (98-107); CREATININE 0.5 MG/DL (0.55-1.30); SODIUM 140 MMOL/L (136-145)
--- NOTE | 2020-06-25 09:58 | Psychiatry Consultation ---
Psychiatry Consultation Psychiatry Consultation Chief Complaint: Gastrointestinal Bleed History of Present Illness: 75-year-old male with lower GI bleeding is got altered mental status confusion with a lot of depression and anxiety as well as attending has requested daily psychiatric consultation anxiety depression secondary to stress of his current medical illness and is declining medical problems, cooperative on interview Mental status examination: 75-year-old male appearance disheveled at irritable agitated affect constricted intellect poor mood depressed anxious motor activity psychomotor agitation judgment is poor orientation x2 speech is low volume slurred thought process disorganized logical insight judgment is poor Allergies: Coded Allergies: No Known Allergies (Verified , 01/30/08) Medication History Scheduled Acetaminophen (Acetaminophen 8 Hour), 650 MG ORAL Q6H, (Reported) Ascorbic Acid* (Vitamin C*), 500 MG ORAL DAILY, (Reported) Clonidine Hcl* (Catapres*), 0.1 MG ORAL EVERY 6 HOURS, (Reported) Docusate Sodium* (Colace*), 100 MG ORAL DAILY, (Reported) Doxazosin Mesylate* (Doxazosin Mesylate*), 2 MG GT DAILY, (Reported) Hydralazine Hcl* (Hydralazine Hcl*), 50 MG ORAL TWICE A DAY, (Reported) Lactobacillus Acidophilus (Acidophilus), 1 EACH GT DAILY, (Reported) Losartan Potassium* (Cozaar*), 100 MG ORAL DAILY, (Reported) Multivitamin With Minerals (Multivitamins With Minerals*), 1 TAB ORAL DAILY, (Reported) Nifedipine (Nifedipine*), 60 MG ORAL DAILY, (Reported) Risperidone* (Risperdal*), 0.5 MG ORAL BEDTIME, (Reported) Sucralfate* (Carafate*), 1 GM ORAL THREE TIMES A DAY, (Reported) Scheduled PRN Nitroglycerin (Nitrostat), 0.4 MG SL Q5M X3 DOSES PRN for CHEST PAIN, (Reported) Objective Data Height (Feet): 6 Height (Inches): 0.00 Weight (Pounds): 121 Assessment/Plan Assessment/Plan: Treat this patient with Risperdal 0.5 mg p.o. 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
[2020-06-25 12:00] VITALS: BP 158/81
--- NOTE | 2020-06-25 12:52 | General Progress Note ---
Subjective ROS Limited/Unobtainable: No Allergies: Coded Allergies: No Known Allergies (Verified , 01/30/08) Objective Last 24 Hour Vital Signs Date Time Temp Pulse Resp B/P (MAP) Pulse Ox O2 Delivery O2 Flow Rate FiO2 06/25/20 12:00 98.0 98 20 158/81 (106) 98 06/25/20 09:00 Room Air 06/25/20 08:00 58 06/25/20 08:00 97.4 66 16 152/75 (100) 100 06/25/20 06:39 143/62 06/25/20 04:00 54 06/25/20 04:00 97.7 57 16 143/62 (89) 98 06/25/20 00:00 60 06/25/20 00:00 97.7 54 20 155/72 (99) 98 06/24/20 21:31 167/81 06/24/20 21:00 Room Air 06/24/20 20:00 60 06/24/20 20:00 97.7 61 20 167/81 (109) 98 06/24/20 16:00 97.7 56 20 144/77 (99) 97 06/24/20 16:00 53 06/24/20 14:00 123/69 Intake and Output 06/24/20 06/25/20 19:00 07:00 Output Total 1100 ml 1600 ml Balance -1100 ml -1600 ml Output Urine Total 1100 ml 1600 ml # Voids 1 1 Laboratory Tests 06/25/20 07:25: White Blood Count 2.9L, Red Blood Count 3.61L, Hemoglobin 11.4L, Hematocrit 32.7L, Mean Corpuscular Volume 91, Mean Corpuscular Hemoglobin 31.5H, Mean Corpuscular Hemoglobin Concent 34.7, Red Cell Distribution Width 13.8, Platelet Count 120L, Mean Platelet Volume 8.4, Neutrophils (%) (Auto) 77.3H, Lymphocytes (%) (Auto) 9.8L, Monocytes (%) (Auto) 11.2H, Eosinophils (%) (Auto) 0.3, Basophils (%) (Auto) 1.5, Sodium Level 140, Potassium Level 4.0, Chloride Level 104, Carbon Dioxide Level 33H, Anion Gap 4L, Blood Urea Nitrogen 10, Creatinine 0.5L, Estimat Glomerular Filtration Rate > 60, Glucose Level 99, Calcium Level 8.1L Height (Feet): 6 Height (Inches): 0.00 Weight (Pounds): 121 General Appearance: lethargic EENT: normal ENT inspection Neck: supple Cardiovascular: normal rate Respiratory/Chest: decreased breath sounds Abdomen: normal bowel sounds, non tender, soft Extremities: non-tender Assessment/Plan Status: progressing, unchanged Assessment/Plan: dysphagia with GT GIB s/p EGD and colonoscopy: SUMMARY OF FINDINGS: 1. Gastritis, status post biopsy. 2. G-tube in place without any obvious bleeding around the G-tube site. 3. Incomplete examination of the lower GI because of poor prep. 4. Internal hemorrhoids. RECOMMENDATIONS: colonoscopy canceled today due to scheduling issues improved HGB without blood transfusion resume GTF ok for Carrillo Corley MD Jun 25, 2020 12:52
--- NOTE | 2020-06-25 15:46 | Cardiac Electrophysiology PN ---
Assessment/Plan Assessment/Plan 1. Trifascicular block with first-degree AV block, right bundle-branch block and left anterior fascicular block as well as bradycardia with heart rate down to 20s per report. Still angie in 40s. Keep him off of any sinus or AV conrad blocking agents. May need PPM implant. 2. Hypertension. On hydralazine 25 mg three times daily. Avoid clonidine or beta-jose antonio or calcium channel blockers. 3. Dysphagia, status post PEG placement. 4. GI bleed, status post EGD that showed just gastritis. Colonoscopy not performed due to full perforation followed by Dr. Negrete. 5. Anemia due to GI bleed. FU with Dr. Sawyer and Dr. Negrete. Subjective Subjective Comfortable on Tele. PEG feeding and iv fluid ongoing. EF 65%. HR lowest 45 overnight Objective Last 24 Hour Vital Signs Date Time Temp Pulse Resp B/P (MAP) Pulse Ox O2 Delivery O2 Flow Rate FiO2 06/25/20 13:47 158/81 06/25/20 12:00 55 06/25/20 12:00 98.0 98 20 158/81 (106) 98 06/25/20 09:00 Room Air 06/25/20 08:00 58 06/25/20 08:00 97.4 66 16 152/75 (100) 100 06/25/20 06:39 143/62 06/25/20 04:00 54 06/25/20 04:00 97.7 57 16 143/62 (89) 98 06/25/20 00:00 60 06/25/20 00:00 97.7 54 20 155/72 (99) 98 06/24/20 21:31 167/81 06/24/20 21:00 Room Air 06/24/20 20:00 60 06/24/20 20:00 97.7 61 20 167/81 (109) 98 06/24/20 16:00 97.7 56 20 144/77 (99) 97 06/24/20 16:00 53 Intake and Output 06/24/20 06/25/20 19:00 07:00 Output Total 1100 ml 1600 ml Balance -1100 ml -1600 ml Output Urine Total 1100 ml 1600 ml # Voids 1 1 Laboratory Tests Test 06/25/20 07:25 White Blood Count 2.9 K/UL (4.8-10.8) L Red Blood Count 3.61 M/UL (4.70-6.10) L Hemoglobin 11.4 G/DL (14.2-18.0) L Hematocrit 32.7 % (42.0-52.0) L Mean Corpuscular Volume 91 FL (80-99) Mean Corpuscular Hemoglobin 31.5 PG (27.0-31.0) H Mean Corpuscular Hemoglobin Concent 34.7 G/DL (32.0-36.0) Red Cell Distribution Width 13.8 % (11.6-14.8) Platelet Count 120 K/UL (150-450) L Mean Platelet Volume 8.4 FL (6.5-10.1) Neutrophils (%) (Auto) 77.3 % (45.0-75.0) H Lymphocytes (%) (Auto) 9.8 % (20.0-45.0) L Monocytes (%) (Auto) 11.2 % (1.0-10.0) H Eosinophils (%) (Auto) 0.3 % (0.0-3.0) Basophils (%) (Auto) 1.5 % (0.0-2.0) Sodium Level 140 MMOL/L (136-145) Potassium Level 4.0 MMOL/L (3.5-5.1) Chloride Level 104 MMOL/L (98-107) Carbon Dioxide Level 33 MMOL/L (21-32) H Anion Gap 4 mmol/L (5-15) L Blood Urea Nitrogen 10 mg/dL (7-18) Creatinine 0.5 MG/DL (0.55-1.30) L Estimat Glomerular Filtration Rate > 60 mL/min (>60) Glucose Level 99 MG/DL (74-106) Calcium Level 8.1 MG/DL (8.5-10.1) L Objective HEAD AND NECK: No JVD. LUNGS: Clear. CARDIOVASCULAR: Bradycardic S1 and S2 with no gallop or murmur. ABDOMEN: Soft. EXTREMITIES: No pitting edema. Has a G-tube in place. Kobe Aguiar MD Jun 25, 2020 15:46
[2020-06-25 16:00] VITALS: BP 150/84
[2020-06-25 20:00] VITALS: BP 154/71
--- NOTE | 2020-06-25 20:56 | General Progress Note ---
Subjective ROS Limited/Unobtainable: Yes Allergies: Coded Allergies: No Known Allergies (Verified , 01/30/08) Objective Last 24 Hour Vital Signs Date Time Temp Pulse Resp B/P (MAP) Pulse Ox O2 Delivery O2 Flow Rate FiO2 06/25/20 16:00 92 06/25/20 16:00 98.4 109 20 150/84 (106) 97 06/25/20 13:47 158/81 06/25/20 12:00 55 06/25/20 12:00 98.0 98 20 158/81 (106) 98 06/25/20 09:00 Room Air 06/25/20 08:00 58 06/25/20 08:00 97.4 66 16 152/75 (100) 100 06/25/20 06:39 143/62 06/25/20 04:00 54 06/25/20 04:00 97.7 57 16 143/62 (89) 98 06/25/20 00:00 60 06/25/20 00:00 97.7 54 20 155/72 (99) 98 06/24/20 21:31 167/81 06/24/20 21:00 Room Air Intake and Output 06/24/20 06/25/20 19:00 07:00 Intake Total 75 ml Output Total 1100 ml 1600 ml Balance -1100 ml -1525 ml IV Total 75 ml Output Urine Total 1100 ml 1600 ml # Voids 1 1 Laboratory Tests 06/25/20 07:25: White Blood Count 2.9L, Red Blood Count 3.61L, Hemoglobin 11.4L, Hematocrit 32.7L, Mean Corpuscular Volume 91, Mean Corpuscular Hemoglobin 31.5H, Mean Corpuscular Hemoglobin Concent 34.7, Red Cell Distribution Width 13.8, Platelet Count 120L, Mean Platelet Volume 8.4, Neutrophils (%) (Auto) 77.3H, Lymphocytes (%) (Auto) 9.8L, Monocytes (%) (Auto) 11.2H, Eosinophils (%) (Auto) 0.3, Basophils (%) (Auto) 1.5, Sodium Level 140, Potassium Level 4.0, Chloride Level 104, Carbon Dioxide Level 33H, Anion Gap 4L, Blood Urea Nitrogen 10, Creatinine 0.5L, Estimat Glomerular Filtration Rate > 60, Glucose Level 99, Calcium Level 8.1L Height (Feet): 6 Height (Inches): 0.00 Weight (Pounds): 121 Assessment/Plan Problem List: (1) Anemia ICD Codes: D64.9 - Anemia, unspecified SNOMED: 115604120 (2) Pancytopenia ICD Codes: D61.818 - Other pancytopenia SNOMED: 742582595 (3) Malnutrition ICD Codes: E46 - Unspecified protein-calorie malnutrition SNOMED: 21583607 (4) Gastrointestinal hemorrhage ICD Codes: K92.2 - Gastrointestinal hemorrhage, unspecified SNOMED: 07435869 Status: progressing, unchanged Assessment/Plan: gi bleed anemia stable h/h monitor for gi bleed afebrile pancytopenia Colleen Hines MD Jun 25, 2020 20:56
[2020-06-26] VITALS: BP_SYST 157; BP_DIAS 7; BP_DIAS 76
[2020-06-26] MEDS: D5 1/2NS w/KCl 20mEq 1,000 ML IV SCH (02:39)
[2020-06-26 04:00] VITALS: BP 162/70
[2020-06-26] MEDS: HydrALAZINE 25mg tab ORAL SCH ×2 (05:05→14:45)
[2020-06-26 06:37] LABS: HEMATOCRIT 32.9 % (42.0-52.0); HEMOGLOBIN 11.8 G/DL (14.2-18.0); MEAN CORPUSCULAR VOLUME 87 FL (80-99); PLATELET COUNT 128 K/UL (150-450); RED BLOOD COUNT 3.76 M/UL (4.70-6.10); RED CELL DISTRIBUTION WIDTH 14.9 % (11.6-14.8)
[2020-06-26 06:58] LABS: ANION GAP 2 mmol/L (5-15); BLOOD UREA NITROGEN 11 mg/dL (7-18); CALCIUM 8.2 MG/DL (8.5-10.1); CARBON DIOXIDE 33 MMOL/L (21-32); CHLORIDE 103 MMOL/L (98-107); CREATININE 0.7 MG/DL (0.55-1.30); POTASSIUM 4.3 MMOL/L (3.5-5.1); SODIUM 138 MMOL/L (136-145)
--- NOTE | 2020-06-26 07:42 | Hematology/Onc Progress Note ---
Assessment/Plan Assessment/Plan Assessment and Recs # Pancytopenia initially with Anemia due to gastrointestinal hemorrhage -> to undergo egd/colo with Gi --> anemia panel as needed, if downtrending hgb -> hold off transfusion at this time --> hgb 12.5-->12-->11 --> plt 139-->159--->128 --> wbc 3.9->3.5-->3 --> colo/egd shows internal hemorrhoids and gastritis # Elevated ptt, unknown cause, may be due to apixaban, though not always consistent --> mixing study as needed --> difficult to reverse apixaban, side effects, now on hold # Azotemia on ivfs as needed -> bmp daily --> per renal # Dysphagia s/p peg with Gastritis, status post biopsy. --> G-tube in place without any obvious bleeding around the G-tube site # Dvt ppx scds Appreciate consultation and dw RN Subjective Constitutional: Denies: no symptoms, chills, fever, malaise, weakness, other HEENT: Denies: no symptoms, eye pain, blurred vision, tearing, double vision, ear pain, ear discharge, nose pain, nose congestion, throat pain, throat swelling, mouth pain, mouth swelling, other Cardiovascular: Denies: no symptoms, chest pain, edema, irregular heart rate, lightheadedness, palpitations, syncope, other Respiratory: Denies: no symptoms, cough, shortness of breath, SOB with excertion, SOB at rest, sputum, wheezing, other Gastrointestinal/Abdominal: Denies: no symptoms, abdomen distended, abdominal pain, black stools, tarry stools, blood in stool, constipated, diarrhea, difficulty swallowing, nausea, poor appetite, poor fluid intake, rectal bleeding, vomiting, other Neurologic/Psychiatric: Denies: no symptoms, anxiety, depressed, emotional problems, headache, numbness, paresthesia, pre-existing deficit, seizure, tingling, tremors, weakness, other Endocrine: Denies: no symptoms, excessive sweating, flushing, intolerance to cold, intolerance to heat, increased hunger, increased thirst, increased urine, unexplained weight gain, unexplained weight loss, other Allergies: Coded Allergies: No Known Allergies (Verified , 01/30/08) Subjective 06/23 labs are noted, no bleeding, meds noted, s/p endoscopy 06/24 alert, oriented, no bleeding, with gtube feeds ongoing 06/25 meds oted, no bleeding, with gt, prep for colo per rn 06/26 labs are noted, no bleeding, on tube feeds, wbc remains low Objective Objective Current Medications Medications (Trade) Dose Ordered Sig/Madelyn Route PRN Reason Start Time Stop Time Status Last Admin Dose Admin Dextrose/ Electrolytes 1,000 ml @ 75 mls/hr [id number] IV 06/21/20 16:00 07/21/20 15:59 06/26/20 02:39 Hydralazine HCl (Apresoline) 10 mg Q4H PRN IV htn 06/22/20 12:29 09/20/20 12:28 06/26/20 05:04 Hydralazine HCl (Apresoline) 25 mg EVERY 8 HOURS ORAL 06/22/20 14:00 09/20/20 13:59 06/26/20 05:05 Lorazepam (Ativan) 1 mg Q6H PRN ORAL For Anxiety 06/22/20 23:00 06/29/20 22:59 06/26/20 05:05 Risperidone (RisperDAL) 0.5 mg QHS ORAL 06/23/20 21:00 08/07/20 20:59 06/25/20 21:35 Last 24 Hour Vital Signs Date Time Temp Pulse Resp B/P (MAP) Pulse Ox O2 Delivery O2 Flow Rate FiO2 06/26/20 05:32 74 18 162/70 96 06/26/20 05:05 74 18 162/70 96 06/26/20 05:05 162/70 06/26/20 05:04 162/70 06/26/20 04:00 98.8 68 18 162/70 (100) 96 06/26/20 04:00 68 06/26/20 00:00 69 06/26/20 00:00 97.4 69 18 157/76 (103) 96 06/25/20 21:35 154/71 06/25/20 21:00 Room Air 06/25/20 20:00 97.9 63 17 154/71 (98) 97 06/25/20 20:00 63 06/25/20 16:00 92 06/25/20 16:00 98.4 109 20 150/84 (106) 97 06/25/20 13:47 158/81 06/25/20 12:00 55 06/25/20 12:00 98.0 98 20 158/81 (106) 98 06/25/20 09:00 Room Air 06/25/20 08:00 58 06/25/20 08:00 97.4 66 16 152/75 (100) 100 06/25/20 06:39 143/62 06/25/20 04:00 54 06/25/20 04:00 97.7 57 16 143/62 (89) 98 06/25/20 00:00 60 06/25/20 00:00 97.7 54 20 155/72 (99) 98 06/24/20 21:31 167/81 06/24/20 21:00 Room Air 06/24/20 20:00 60 06/24/20 20:00 97.7 61 20 167/81 (109) 98 06/24/20 16:00 97.7 56 20 144/77 (99) 97 06/24/20 16:00 53 06/24/20 14:00 123/69 06/24/20 12:00 97.8 58 20 123/69 (87) 98 06/24/20 12:00 60 06/24/20 09:45 50 06/24/20 09:00 Room Air 06/24/20 08:00 97.8 51 20 150/77 (101) 99 Intake and Output 06/25/20 06/26/20 19:00 07:00 Intake Total 1385 ml 1535 ml Output Total 851 ml 1400 ml Balance 534 ml 135 ml Intake Free Water 200 ml 50 ml IV Total 825 ml 825 ml Tube Feeding 360 ml 660 ml Output Urine Total 850 ml 1400 ml Stool Total 1 ml # Bowel Movements 1 Labs Test 06/24/20 07:35 06/25/20 07:25 06/26/20 06:18 White Blood Count 3.2 K/UL (4.8-10.8) 2.9 K/UL (4.8-10.8) 3.0 K/UL (4.8-10.8) Red Blood Count 3.38 M/UL (4.70-6.10) 3.61 M/UL (4.70-6.10) 3.76 M/UL (4.70-6.10) Hemoglobin 10.6 G/DL (14.2-18.0) 11.4 G/DL (14.2-18.0) 11.8 G/DL (14.2-18.0) Hematocrit 31.2 % (42.0-52.0) 32.7 % (42.0-52.0) 32.9 % (42.0-52.0) Mean Corpuscular Volume 92 FL (80-99) 91 FL (80-99) 87 FL (80-99) Mean Corpuscular Hemoglobin 31.4 PG (27.0-31.0) 31.5 PG (27.0-31.0) 31.4 PG (27.0-31.0) Mean Corpuscular Hemoglobin Concent 34.1 G/DL (32.0-36.0) 34.7 G/DL (32.0-36.0) 36.0 G/DL (32.0-36.0) Red Cell Distribution Width 13.9 % (11.6-14.8) 13.8 % (11.6-14.8) 14.9 % (11.6-14.8) Platelet Count 138 K/UL (150-450) 120 K/UL (150-450) 128 K/UL (150-450) Mean Platelet Volume 8.1 FL (6.5-10.1) 8.4 FL (6.5-10.1) 8.8 FL (6.5-10.1) Neutrophils (%) (Auto) % (45.0-75.0) 77.3 % (45.0-75.0) % (45.0-75.0) Lymphocytes (%) (Auto) % (20.0-45.0) 9.8 % (20.0-45.0) % (20.0-45.0) Monocytes (%) (Auto) % (1.0-10.0) 11.2 % (1.0-10.0) % (1.0-10.0) Eosinophils (%) (Auto) % (0.0-3.0) 0.3 % (0.0-3.0) % (0.0-3.0) Basophils (%) (Auto) % (0.0-2.0) 1.5 % (0.0-2.0) % (0.0-2.0) Differential Total Cells Counted 100 Neutrophils % (Manual) 62 % (45-75) Lymphocytes % (Manual) 32 % (20-45) Monocytes % (Manual) 6 % (1-10) Eosinophils % (Manual) 0 % (0-3) Basophils % (Manual) 0 % (0-2) Band Neutrophils 0 % (0-8) Platelet Estimate Decreased Platelet Morphology Normal Red Blood Cell Morphology Normal Sodium Level 140 MMOL/L (136-145) 138 MMOL/L (136-145) Potassium Level 4.0 MMOL/L (3.5-5.1) 4.3 MMOL/L (3.5-5.1) Chloride Level 104 MMOL/L (98-107) 103 MMOL/L (98-107) Carbon Dioxide Level 33 MMOL/L (21-32) 33 MMOL/L (21-32) Anion Gap 4 mmol/L (5-15) 2 mmol/L (5-15) Blood Urea Nitrogen 10 mg/dL (7-18) 11 mg/dL (7-18) Creatinine 0.5 MG/DL (0.55-1.30) 0.7 MG/DL (0.55-1.30) Estimat Glomerular Filtration Rate > 60 mL/min (>60) > 60 mL/min (>60) Glucose Level 99 MG/DL (74-106) 99 MG/DL (74-106) Calcium Level 8.1 MG/DL (8.5-10.1) 8.2 MG/DL (8.5-10.1) Height (Feet): 6 Height (Inches): 0.00 Weight (Pounds): 121 Objective Physical Exam General: Awake and alert, no acute distress HEENT: NC/AT. EOMI. Cardiovascular: RRR. S1 and S2 normal. No murmur appreciated Resp: Normal work of breathing. No cough, wheezing or crackles appreciated Abdomen: Abdomen is soft, nondistended. Nontender. G-tube in place ++ Rectal: Gross blood mixed with stool Skin: Intact. No abrasions, laceration or rash over the exposed skin MSK: Frail, decreased muscle bulk. Neuro: Awake and alert. Mentating appropriately. KleynbergNicholas L. MD Jun 26, 2020 07:42
--- NOTE | 2020-06-26 08:16 | Psychiatry Consultation ---
Psychiatry Consultation Psychiatry Consultation Chief Complaint: Gastrointestinal Bleed History of Present Illness: 75-year-old male patient still confused disorganized is got altered mental status confusion got declining cognition plus baseline for those reasons he has increased depression and altered mental status as well as attending has requested daily psychiatric consultation to try to prevent further decline in his cognition there service June 26, 2020 chart reviewed discussed absences at bedside thank you Mental status examination: 75-year-old male appearance disheveled at irritable agitated affect allergic to intellect poor mood depressed anxious moderately psychomotor agitation a ttachments poor orientation x2 speech is low volume slurred thought process disorganized logical insight judgment poor Allergies: Coded Allergies: No Known Allergies (Verified , 01/30/08) Medication History Scheduled Acetaminophen (Acetaminophen 8 Hour), 650 MG ORAL Q6H, (Reported) Ascorbic Acid* (Vitamin C*), 500 MG ORAL DAILY, (Reported) Clonidine Hcl* (Catapres*), 0.1 MG ORAL EVERY 6 HOURS, (Reported) Docusate Sodium* (Colace*), 100 MG ORAL DAILY, (Reported) Doxazosin Mesylate* (Doxazosin Mesylate*), 2 MG GT DAILY, (Reported) Hydralazine Hcl* (Hydralazine Hcl*), 50 MG ORAL TWICE A DAY, (Reported) Lactobacillus Acidophilus (Acidophilus), 1 EACH GT DAILY, (Reported) Losartan Potassium* (Cozaar*), 100 MG ORAL DAILY, (Reported) Multivitamin With Minerals (Multivitamins With Minerals*), 1 TAB ORAL DAILY, (Reported) Nifedipine (Nifedipine*), 60 MG ORAL DAILY, (Reported) Risperidone* (Risperdal*), 0.5 MG ORAL BEDTIME, (Reported) Sucralfate* (Carafate*), 1 GM ORAL THREE TIMES A DAY, (Reported) Scheduled PRN Nitroglycerin (Nitrostat), 0.4 MG SL Q5M X3 DOSES PRN for CHEST PAIN, (Reported) Objective Data Height (Feet): 6 Height (Inches): 0.00 Weight (Pounds): 121 Assessment/Plan Assessment/Plan: Treat this patient with Risperdal 0.5 mg p.o. nightly and Ativan 1 every 6 hours as needed anxiety agitation 20 minutes of cognitive behavioral therapy provided while monitoring positive and negative thoughts help convert his negative thoughts to more positive thoughts to reduce depression anxiety mood lability Diagnosis [place] I: paranoid schizophrenia with acute exacerbation rule out depression with psychotic features Eris Shine MD Jun 26, 2020 08:15
[2020-06-26 08:33] VITALS: BP 152/75
--- NOTE | 2020-06-26 11:51 | General Progress Note ---
Subjective ROS Limited/Unobtainable: No Allergies: Coded Allergies: No Known Allergies (Verified , 01/30/08) Objective Last 24 Hour Vital Signs Date Time Temp Pulse Resp B/P (MAP) Pulse Ox O2 Delivery O2 Flow Rate FiO2 06/26/20 10:00 98.7 06/26/20 09:06 Room Air 06/26/20 08:35 83 06/26/20 08:33 100.8 84 20 152/75 (100) 98 06/26/20 05:32 74 18 162/70 96 06/26/20 05:05 74 18 162/70 96 06/26/20 05:05 162/70 06/26/20 05:04 162/70 06/26/20 04:00 98.8 68 18 162/70 (100) 96 06/26/20 04:00 68 06/26/20 00:00 69 06/26/20 00:00 97.4 69 18 157/76 (103) 96 06/25/20 21:35 154/71 06/25/20 21:00 Room Air 06/25/20 20:00 97.9 63 17 154/71 (98) 97 06/25/20 20:00 63 06/25/20 16:00 92 06/25/20 16:00 98.4 109 20 150/84 (106) 97 06/25/20 13:47 158/81 06/25/20 12:00 55 06/25/20 12:00 98.0 98 20 158/81 (106) 98 Intake and Output 06/25/20 06/26/20 19:00 07:00 Intake Total 1385 ml 1535 ml Output Total 851 ml 1400 ml Balance 534 ml 135 ml Intake Free Water 200 ml 50 ml IV Total 825 ml 825 ml Tube Feeding 360 ml 660 ml Output Urine Total 850 ml 1400 ml Stool Total 1 ml # Bowel Movements 1 Laboratory Tests 06/26/20 06:18: White Blood Count 3.0L, Red Blood Count 3.76L, Hemoglobin 11.8L, Hematocrit 32.9L, Mean Corpuscular Volume 87, Mean Corpuscular Hemoglobin 31.4H, Mean Corpuscular Hemoglobin Concent 36.0, Red Cell Distribution Width 14.9H, Platelet Count 128L, Mean Platelet Volume 8.8, Neutrophils (%) (Auto) , Lymphocytes (%) (Auto) , Monocytes (%) (Auto) , Eosinophils (%) (Auto) , Basophils (%) (Auto) , Differential Total Cells Counted 100, Neutrophils % (Manual) 69, Lymphocytes % (Manual) 23, Monocytes % (Manual) 8, Eosinophils % (Manual) 0, Basophils % (Manual) 0, Band Neutrophils 0, Platelet Estimate DecreasedL, Platelet Morphology Normal, Anisocytosis 1+, Sodium Level 138, Potassium Level 4.3, Chloride Level 103, Carbon Dioxide Level 33H, Anion Gap 2L, Blood Urea Nitrogen 11, Creatinine 0.7, Estimat Glomerular Filtration Rate > 60, Glucose Level 99, Calcium Level 8.2L Height (Feet): 6 Height (Inches): 0.00 Weight (Pounds): 121 General Appearance: no apparent distress EENT: PERRL/EOMI Neck: supple Cardiovascular: normal rate Respiratory/Chest: decreased breath sounds Abdomen: normal bowel sounds, non tender, soft Extremities: non-tender Assessment/Plan Status: progressing, unchanged Assessment/Plan: dysphagia with GT GIB s/p EGD and colonoscopy: SUMMARY OF FINDINGS: 1. Gastritis, status post biopsy. 2. G-tube in place without any obvious bleeding around the G-tube site. 3. Incomplete examination of the lower GI because of poor prep. 4. Internal hemorrhoids. RECOMMENDATIONS: improved HGB without blood transfusion GT ok Carrillo Dos Santos dc, MD Jun 26, 2020 11:51
[2020-06-26 12:54] VITALS: BP 132/72
--- NOTE | 2020-06-26 14:00 | Cardiac Electrophysiology PN ---
Assessment/Plan Assessment/Plan 1. Trifascicular block with first-degree AV block, RBBB and left anterior fascicular block as well as bradycardia with heart rate down to 20s per report. Keep him off of any sinus or AV conrad blocking agents. HR now in 50-60s Hold off on PPM implant. 2. Hypertension. On hydralazine 25 mg three times daily. Avoid clonidine or beta-jose antonio or calcium channel blockers. 3. Dysphagia, status post PEG placement. 4. GI bleed, status post EGD that showed just gastritis. Colonoscopy not performed due to full perforation followed by Dr. Negrete. 5. Anemia due to GI bleed. FU with Dr. Sawyer and Dr. Negrete. Subjective Subjective Comfortable in NAD. PEG feeding and iv fluid ongoing. EF 65%. HR lowest 45 overnight Objective Last 24 Hour Vital Signs Date Time Temp Pulse Resp B/P (MAP) Pulse Ox O2 Delivery O2 Flow Rate FiO2 06/26/20 12:54 97.9 87 132/72 (92) 87 06/26/20 12:53 63 06/26/20 10:00 98.7 06/26/20 09:06 Room Air 06/26/20 08:35 83 06/26/20 08:33 100.8 84 20 152/75 (100) 98 06/26/20 05:32 74 18 162/70 96 06/26/20 05:05 74 18 162/70 96 06/26/20 05:05 162/70 06/26/20 05:04 162/70 06/26/20 04:00 98.8 68 18 162/70 (100) 96 06/26/20 04:00 68 06/26/20 00:00 69 06/26/20 00:00 97.4 69 18 157/76 (103) 96 06/25/20 21:35 154/71 06/25/20 21:00 Room Air 06/25/20 20:00 97.9 63 17 154/71 (98) 97 06/25/20 20:00 63 06/25/20 16:00 92 06/25/20 16:00 98.4 109 20 150/84 (106) 97 Intake and Output 06/25/20 06/26/20 19:00 07:00 Intake Total 1385 ml 1535 ml Output Total 851 ml 1400 ml Balance 534 ml 135 ml Intake Free Water 200 ml 50 ml IV Total 825 ml 825 ml Tube Feeding 360 ml 660 ml Output Urine Total 850 ml 1400 ml Stool Total 1 ml # Bowel Movements 1 Laboratory Tests Test 06/26/20 06:18 White Blood Count 3.0 K/UL (4.8-10.8) L Red Blood Count 3.76 M/UL (4.70-6.10) L Hemoglobin 11.8 G/DL (14.2-18.0) L Hematocrit 32.9 % (42.0-52.0) L Mean Corpuscular Volume 87 FL (80-99) Mean Corpuscular Hemoglobin 31.4 PG (27.0-31.0) H Mean Corpuscular Hemoglobin Concent 36.0 G/DL (32.0-36.0) Red Cell Distribution Width 14.9 % (11.6-14.8) H Platelet Count 128 K/UL (150-450) L Mean Platelet Volume 8.8 FL (6.5-10.1) Neutrophils (%) (Auto) % (45.0-75.0) Lymphocytes (%) (Auto) % (20.0-45.0) Monocytes (%) (Auto) % (1.0-10.0) Eosinophils (%) (Auto) % (0.0-3.0) Basophils (%) (Auto) % (0.0-2.0) Differential Total Cells Counted 100 Neutrophils % (Manual) 69 % (45-75) Lymphocytes % (Manual) 23 % (20-45) Monocytes % (Manual) 8 % (1-10) Eosinophils % (Manual) 0 % (0-3) Basophils % (Manual) 0 % (0-2) Band Neutrophils 0 % (0-8) Platelet Estimate Decreased L Platelet Morphology Normal Anisocytosis 1+ Sodium Level 138 MMOL/L (136-145) Potassium Level 4.3 MMOL/L (3.5-5.1) Chloride Level 103 MMOL/L (98-107) Carbon Dioxide Level 33 MMOL/L (21-32) H Anion Gap 2 mmol/L (5-15) L Blood Urea Nitrogen 11 mg/dL (7-18) Creatinine 0.7 MG/DL (0.55-1.30) Estimat Glomerular Filtration Rate > 60 mL/min (>60) Glucose Level 99 MG/DL (74-106) Calcium Level 8.2 MG/DL (8.5-10.1) L Objective HEAD AND NECK: No JVD. LUNGS: Clear. CARDIOVASCULAR: Bradycardic S1 and S2 with no gallop or murmur. ABDOMEN: Soft. EXTREMITIES: No pitting edema. Has a G-tube in place. Kobe Aguiar MD Jun 26, 2020 14:00
[2020-06-26 16:50] VITALS: BP 128/61
--- NOTE | 2020-06-28 09:29 | Discharge Summary ---
Discharge Summary Discharge Summary _ DATE OF ADMISSION: 06/21/2020 DATE OF DISCHARGE: 06/26/2020 DISCHARGED BY: Dr. Colleen Holly CONSULTANTS: Dr. Kobe Saucedo, [facility] HOSPITAL COURSE: Patient is a 75-year-old male from [facility], who presented to ED due to increased bright red bleeding per rectum. He has history of confusion and left intertrochanteric femur fracture repair, hypertension, hyperlipidemia, G-tube feed, on apixaban for DVT prophylaxis. On arrival to ED, blood pressure was 161/91, heart rate 63. He was afebrile and was saturating well on room air. Blood work did not show any leukocytosis. Hemoglobin 12.5 and hematocrit 36. Electrolytes were normal. EKG was in sinus bradycardia, first-degree AV block, no ST segment elevation. Chest x-ray did not show any acute disease. He was started on IV fluids, and Protonix. He was admitted for evaluation of GI bleed. He was admitted to monitored floor. Apixaban was placed on hold. Occult blood was positive. The following day, he underwent upper endoscopy and sigmoidoscopy by Dr. Ying. Findings showed diffuse gastritis. G-tube was in place. There was no evidence of ulceration. Given poor prep, unable to advance beyond sigmoid colon. Tube feeding was resumed. H&H continued to be monitored. Hepatitis and HIV screen negative. Blood pressure was elevated. Systolic blood pressure in the high 170s. EKG konrad wed trifascicular block with first-degree AV block, right bundle pulse block and left anterior fascicular block as well as bradycardia with heart rate down to 20s per report. He was started on hydralazine. Echocardiogram showed EF of 65%. He underwent psychiatric evaluation. He was diagnosed with major depressive disorder with psychotic features. He was treated with Risperdal and psychotherapy. Hemoglobin was stable. He was tolerating G-tube feeding well. Heart rate improved to 5060. He was given physical therapy. Patient was cleared for discharge back to residential. FINAL DIAGNOSES: GI bleed status post EGD that showed gastritis Trifascicular block with first-degree AV block, RBBB and left anterior fascicular block Hypertension Dysphagia, on PEG Anemia due to GI bleed Internal hemorrhoids Paranoid schizophrenia with acute exacerbation rule out depression with psychoti c features Pancytopenia initially with anemia Elevated PTT, unknown cause, may be due to apixaban Azotemia DISPOSITION: DC back to SNF. DISCHARGE MEDICATIONS: Refer to Discharge Medication List. I have been assigned to complete a discharge summary on this account, I was not involved with the patient's management.--AMARIS Davis Jacqueline Robles NP Jun 28, 2020 09:29
== END 2020-06-26 18:58 | DRG 241 ==
LOC: EDBD 08:21 → EDUNIT# 08:21 → EMR 08:41 → OBSVTOIN 09:39 → 2E 09:39 → EDBEDREQ 10:41
PROC: 0DB78ZX Excision of Stomach, Pylorus, Via Natural or Artificial Opening Endoscopic, Diagnostic (ICD-10-PCS; principal; 2020-06-22 08:38)
PROC: 0DJD8ZZ Inspection of Lower Intestinal Tract, Via Natural or Artificial Opening Endoscopic (ICD-10-PCS; 2020-06-22 08:38)
DX: K29.71 Gastritis, unspecified, with bleeding (principal); E46 Unspecified protein-calorie malnutrition; Z68.1 Body mass index [BMI] 19.9 or less, adult; D50.0 Iron deficiency anemia secondary to blood loss (chronic); D61.818 Other pancytopenia; Z43.1 Encounter for attention to gastrostomy; F33.3 Major depressive disorder, recurrent, severe with psychotic symptoms; I45.3 Trifascicular block; I10 Essential (primary) hypertension; K64.8 Other hemorrhoids; F20.0 Paranoid schizophrenia
CPT/HCPCS: 36415; 71045; 80048; 80053; 83690; 84439; 84443; 84484; 85007; 85025; 85610; 85730; 86703; 86705; 86709; 86803; 86850; 86900; 86901; 87081; 87340; 93005; 93306; 93970; 94003; 94150; 96374; 96375; 99285; U0002